=== PATIENT | female | born 1940 | race Caucasian/White ===

== ENCOUNTER → 2017-05-05 | Outpatient (CLI) | payer MEDICARE ==
--- NOTE | 2017-05-05 13:34 | PE ---
EXAMINATION TYPE: PET CT fusion skull to thigh DATE OF EXAM: 05/05/2017 COMPARISON: Chest x-ray January 17, 2016 HISTORY: Solitary pulmonary nodule TECHNIQUE: Following the intravenous administration of 11.27 mCi of F-18 FDG, whole body images are performed from the skull base to the midthigh. Images are reviewed on the computer in the coronal, a xial, and sagittal planes. Reconstructed rotating images are created on independent workstation and reviewed on the computer. A noncontrast CT is performed in conjunction with the PET scan. SCAN: Initial Scan FINDINGS: SKULL BASE AND NECK: No suspicious hypermetabolic uptake is seen in the neck. CHEST, MEDIASTINUM, AND HILAR REGION: There is irregular thick-walled cavitary lesion anterior superi or aspect right lower lobe, and has hypermetabolic solid component along the right lower lateral chano in, this solid component measures 9 x 6 mm axial image 92. Max SUV at this level is 5.9. Cavitary les ion in its entirety measures 1.9 x 1.6 cm axial image 91. Remainder of the thorax shows no suspicious hypermetabolic uptake. Linear scarring bilateral lung api ludmila is seen. ABDOMEN AND PELVIS: No suspicious hypermetabolic uptake is seen in the abdomen or pelvis. OSSEOUS STRUCTURES: No suspicious hypermetabolic uptake noted. OTHER CT: There is coronary artery calcification is seen which is noted marker for coronary artery di sease. There are scattered diverticula throughout the colon most prominent in the sigmoid colon. There are s cattered pelvic phleboliths. Uterus is surgically absent or markedly atrophic in appearance. There is multilevel facet arthropathy in the lumbar spine. There is multilevel spurring in the thorac olumbar spine. Underlying scoliosis is present. IMPRESSION: Nonspecific anterior superior lateral right lower lobe 1.9 cm cavitary lesion with eccent matt hypermetabolic wall or solid component differential includes infection/parenchymal abscess versus cavitary neoplasm. Clinical correlation advised. No additional areas of abnormal hypermetabolic upta ke in remainder of body. No additional suspicious nodules or thoracic adenopathy noted.
== END | disposition home or self-care (01) ==
LOC: RADPETMAIN 09:48
PROVIDERS: ATTEND Internal Medicine Critical Care Medicine
DX: J98.4 Other disorders of lung (principal)
CPT/HCPCS: 78815; A9552

== ENCOUNTER 2023-12-26 23:18 | Inpatient (IN) | payer MEDICARE ==
[2023-12-27 01:07] LABS: ALT 18 U/L (4-34); AST 31 U/L (14-36); African American GFR (CKD) >90 (>60 ml/min/1.73 sqM); Albumin 3.8 g/dL (3.5-5.0); Alkaline Phosphatase 121 U/L (38-126); Anion Gap 9 mmol/L; Blood Urea Nitrogen 28 mg/dL (7-17); Calcium 9.5 mg/dL (8.4-10.2); Carbon Dioxide 24 mmol/L (22-30); Chloride 107 mmol/L (98-107); Glucose 208 mg/dL (74-99); Non-African American GFR(CKD) >90 (>60 ml/min/1.73 sqM); Potassium 3.7 mmol/L (3.5-5.1); Sodium 140 mmol/L (137-145); Total Bilirubin 0.4 mg/dL (0.2-1.3); Total Protein 6.5 g/dL (6.3-8.2)
[2023-12-27 01:08] LABS: Basophils % (A) 0 %; Eosinophils % (A) 0 %; HCT 38.9 % (34.0-46.0); Lymphocytes # (A) 0.7 k/uL (1.0-4.8); Lymphocytes % (A) 9 %; MCH 32.1 pg (25.0-35.0); MCHC 33.5 g/dL (31.0-37.0); Mean Platelet Volume 7.8; Monocytes # (A) 0.4 k/uL (0-1.0); Monocytes % (A) 6 %; Neutrophils # (A) 6.4 k/uL (1.3-7.7); Neutrophils % (A) 83 %; Platelet Count 299 k/uL (150-450); RBC 4.05 m/uL (3.80-5.40); RDW 12.8 % (11.5-15.5); WBC 7.7 k/uL (3.8-10.6)
[2023-12-27 01:38] LABS: VBG PH 7.47 (7.31-7.41)
[2023-12-27] MEDS ORDERED: PNEUMONIA PROTOCOL UTILIZED 1 EACH MISC PO PRN (02:42)
[2023-12-27] MEDS: SODIUM CHLORIDE 0.9% 1,000 ML IV SCH (03:13)
[2023-12-27] MEDS ORDERED: ONDANSETRON 4 MG TAB PO PRN (09:03)
[2023-12-27] MEDS ORDERED: ACETAMINOPHEN TAB 325 MG TAB PO PRN (09:03)
[2023-12-27] MEDS ORDERED: LOPERAMIDE 2 MG CAP PO PRN (09:03)
[2023-12-27] MEDS ORDERED: ALBUTEROL NEBULIZED 2.5 MG/3 ML INHALATION PRN (09:03)
[2023-12-27] MEDS: MAGNESIUM HYDROXIDE 2,400 MG/30 ML CUP PO PRN (10:15)
--- NOTE | 2023-12-27 11:27 | XR ---
EXAMINATION TYPE: XR chest 1V DATE OF EXAM: 12/27/2023 9:54 AM COMPARISON: 12/26/2023 CLINICAL INDICATION: Female, 83 years old with history of sob; TECHNIQUE: XR chest 1V Frontal view of the chest. FINDINGS: Lungs/Pleura: There is no evidence of pleural effusion, focal consolidation, or pneumothorax. Pulmonary vascularity: Unremarkable. Heart/mediastinum: Cardiomediastinal silhouette is unremarkable. Musculoskeletal: No acute osseous pathology. IMPRESSION: 1. No acute cardiopulmonary disease process. 2. COPD changes. [facility], , 12/27/2023 11:25 AM
[2023-12-27] MEDS: atenoloL 25 MG TAB PO SCH (13:12)
--- NOTE | 2023-12-27 15:20 | P.HPIM ---
History of Present Illness History of present illness; 83-year-old female with a past medical history of COPD (on), GERD, hypertension, and OA presents with complaints of shortness of breath and tachypnea. Patient's daughter reports she noticed her mother, who stays at [facility] normally, was having increased work of breathing so asked one of the nurses at [facility] to put a pulse ox on her and found that her O2 saturation was in the low 80s. At this point the daughter was concerned and brought her mother to the emergency room. Of note, the daughter reports the patient was being treated for a potential pneumonia by the REFINER OPERATOR at [facility] with azithromycin, cefotetan, and prednisone 50 mg. Patient reports she currently is feeling much better after starting on BiPAP in the ER and eventually being downgraded onto 3 L oxygen nasal cannula. Patient admits to shortness of breath, tachypnea, and cough. Patient denies any other symptoms. Family history: Noncontributory Surgical history: Breast biopsy and cataract surgery Social history: Occasional alcohol use and former smoker. Initial lab work from the ER was significant for WBC 7.7, hemoglobin 13, MCV 96, neutrophils 6.4, plasma lactic acid 2.2--> 1.2, glucose 208. EKG done in the ER showed heart rate of 102 bpm, no ST segment elevation or depression seen, no T-wave inversions seen. Sinus tachycardia. ER CXR: No acute cardiopulmonary process, COPD changes. Patient admitted to internal medicine service REVIEW OF SYSTEMS: As stated above in HPI. The rest of the 14-point review of systems is negative. PHYSICAL EXAMINATION: GENERAL: The patient is alert and oriented x3, not in any acute distress. Well developed, well nourished. HEENT: Pupils are round and equally reacting to light. EOMI. No scleral icterus. No conjunctival pallor. Normocephalic, atraumatic. No pharyngeal erythema. No thyromegaly. CARDIOVASCULAR: S1 and S2 present. No murmurs, rubs, or gallops. PULMONARY: Chest is clear to auscultation b/l, no wheezing or crackles. ABDOMEN: Soft, nontender, nondistended, normoactive bowel sounds. No palpable organomegaly. MUSCULOSKELETAL: No joint swelling or deformity. EXTREMITIES: No cyanosis, clubbing, or pedal edema. NEUROLOGICAL: Gross neurological examination did not reveal any focal deficits. SKIN: No rashes. Assessment & Plan: Acute: #Shortness of breath and tachypnea Acute hypoxic respiratory failure Bacterial pneumonia Pending sputum, blood culture, and Legionella Procalcitonin 0.63, troponins less than 0.012 Ordered D-dimer which was found to be elevated 4.25 so ordered a stat chest CTA, pending results Pulmonology on consult, appreciate further recommendations Continue home breathing treatments Chronic: #GERD: Continue famotidine 20 mg p.o. daily #Hypertension: Continue home medications #OA F: NS at 100 cc/h E: None N: Regular diet A: Normally is very sedentary at [facility], ambulates with assistance DVT ppx: Lovenox 40 SQ daily GI ppx: Famotidine 20 mg p.o. daily Dispo: Pending clinical course Marc Bennett MD PGY-1 FM Dictation was produced using [employer] dictation software. please excuse any grammatical, word or spelling errors. Attestation I have seen and examined this patient with my resident , discussed the same with the resident/MISAEL, and agree with the dictator's assessment and plan as written Dr. Nehemiah horn Past Medical History Past Medical History: Cancer, COPD, GERD/Reflux, Hypertension, Osteoarthritis (OA) Additional Past Medical History / Comment(s): hypothyroidism, rhematic fever as child, heart murmur, dementia, frequent falls History of Any Multi-Drug Resistant Organisms: None Reported Additional Past Surgical History / Comment(s): breast biopsy, cataract sx. Past Psychological History: Anxiety, Depression Smoking Status: Former smoker Past Alcohol Use History: Occasional Past Drug Use History: None Reported Medications and Allergies Home Medications Medication Instructions Recorded Confirmed Type Acetaminophen Tab [Tylenol] 650 mg PO Q6H PRN MDD 3 GRAMS 12/27/23 12/27/23 History Albuterol Sulfate [Albuterol 2 puff PO RT-Q6H PRN 12/27/23 12/27/23 History Sulfate Hfa] Aspirin EC [Ecotrin Low Dose] 81 mg PO DAILY 12/27/23 12/27/23 History Azithromycin [Zithromax Z Pack] See Taper PO DIRECTED 12/27/23 12/27/23 History Famotidine [Pepcid] 20 mg PO DAILY 12/27/23 12/27/23 History Ipratropium [place] [Atrovent Hfa] 2 puff INHALATION RT-QID 12/27/23 12/27/23 History Loperamide [Imodium] 2 mg PO QID PRN 12/27/23 12/27/23 History Magnesium Hydroxide [Milk of 30 mg PO DAILY PRN 12/27/23 12/27/23 History Magnesia] Multivitamins, Thera [Multivitamin 1 tab PO DAILY 12/27/23 12/27/23 History (formulary)] Ondansetron [Zofran] 4 mg PO Q6H PRN 12/27/23 12/27/23 History Sertraline [Zoloft] 50 mg PO DAILY 12/27/23 12/27/23 History Umeclidinium Brm/Vilanterol Tr 1 puff INHALATION RT-DAILY 12/27/23 12/27/23 History [Anoro Ellipta 62.5-25 Mcg INH] atenoloL [Tenormin] 25 mg PO DAILY 12/27/23 12/27/23 History cefUROXime axetiL [Ceftin] 500 mg PO Q12H 12/27/23 12/27/23 History predniSONE 50 mg PO DAILY 12/27/23 12/27/23 History Allergies Allergy/AdvReac Type Severity Reaction Status Date / Time animal dander Allergy Unknown Verified 12/27/23 08:16 atorvastatin [From Lipitor] Allergy Unknown Verified 12/27/23 08:16 latex Allergy Unknown Verified 12/27/23 08:16 milk Allergy Unknown Verified 12/27/23 08:16 Physical Exam Vitals: Vital Signs Temp Pulse Resp BP Pulse Ox FiO2 12/27/23 07:17 77 20 108/51 98 12/27/23 06:11 72 16 124/54 94 L 12/27/23 05:24 73 22 123/54 95 12/27/23 04:24 79 16 123/72 95 12/27/23 02:35 87 16 126/57 94 L 12/27/23 01:08 93 16 124/61 95 12/27/23 01:03 28 H 12/27/23 00:05 100 16 121/62 96 12/26/23 23:34 35 12/26/23 23:20 98.7 F 103 H 33 H 129/66 94 L Intake and Output 12/26/23 12/27/23 12/27/23 22:59 06:59 14:59 Other: Weight 60.6 kg Results CBC & Chem 7: 12/27/23 00:25 12/27/23 00:25 Labs: Abnormal Lab Results - Last 24 Hours (Table) 12/27/23 12/27/23 12/27/23 Range/Units 00:25 00:25 00:25 Lymphocytes # 0.7 L (1.0-4.8) k/uL VBG pH (7.31-7.41) BUN 28 H (7-17) mg/dL Creatinine 0.47 L (0.52-1.04) mg/dL Glucose 208 H (74-99) mg/dL Plasma Lactic Acid Mak 2.2 H* (0.7-2.0) mmol/L 12/27/23 Range/Units 01:09 Lymphocytes # (1.0-4.8) k/uL VBG pH 7.47 H (7.31-7.41) BUN (7-17) mg/dL Creatinine (0.52-1.04) mg/dL Glucose (74-99) mg/dL Plasma Lactic Acid Mak (0.7-2.0) mmol/L
--- NOTE | 2023-12-27 15:22 | P.GSCN ---
History of Present Illness Consult date: 12/27/23 History of present illness: CHIEF COMPLAINT: Pneumonia HISTORY OF PRESENT ILLNESS: This is a 83-year-old female who was a transfer from [facility]. She initially presented there with shortness of breath cough and diagnosed with pneumonia. Patient does have a history of COPD and lung cancer status post radiation treatment. Patient also was having abdominal pain. A CT scan abdomen pelvis was completed showing large distention of the sigmoid colon with fecal debris and fluid retention. Patient did have a large bowel movement in the ER and reports some improvement in her abdominal pain. She did have nausea earlier. No vomiting. Denies history of constipation. And denies any prior colonoscopy. Surgical service consulted in regards to abdominal pain. PAST MEDICAL HISTORY: See below PAST SURGICAL HISTORY: See below MEDICATIONS: See below ALLERGIES: See below SOCIAL HISTORY: No illicit drug use. REVIEW OF SYSTEMS: CONSTITUTIONAL: Denies fever or chills. HEENT: Denies blurred vision, vision changes, or eye pain. Denies hemoptysis CARDIOVASCULAR: Denies chest pain or pressure. RESPIRATORY: No shortness of breath. GASTROINTESTINAL: See HPI for pertinent findings HEMATOLOGIC: Denies bleeding disorders. GENITOURINARY: Denies any blood in urine or increased urinary frequency. SKIN: Denies pruitis. Denies rash. PHYSICAL EXAM: VITAL SIGNS: Reviewed GENERAL: Well-developed in no acute distress. HEENT: No sclera icterus. Extraocular movements grossly intact. Moist buccal mucosa. Head is atraumatic, normocephalic. No nasal drainage. ABDOMEN: Soft. Distended. Nontender with palpation. Tympanic. No guarding. NEUROLOGIC: Alert and oriented. Cranial nerves II through XII grossly intact. LABORATORY DATA: WBC is 7.7 Hgb is 13 platelets 299 D-dimer 4.25 sodium 140 potassium 3.7 creatinine 0.47 Lactic acid 2.2 down to 1.2 IMAGING: CT scan abdomen pelvis reports large distention of the sigmoid colon with fecal debris and fluid in the rectum. Dilated colon is not otherwise apparent. ASSESSMENT: 1. Abdominal distention. CT scan reporting large distention of the sigmoid colon with fecal debris and fluid in the rectum 2. Constipation 3. Pneumonia PLAN: -Agree with milk of magnesia -Recommend full liquid diet -Continue to monitor -Discontinue Imodium at this time Thank you for this consultation Physician Cutting Tool Sharpener note has been reviewed by physician. Signing provider agrees with the documented findings, assessment, and plan of care. Please see additional documentation below CHIEF COMPLAINT: Abdominal distention HISTORY OF PRESENT ILLNESS: The patient is a 83-year-old female who was admitted secondary to dyspnea and bacterial pneumonia. During assessment, patient found abdominal distention has general surgery consultation. No reports of blood in stools. Patient had initial abdominal pain. Patient noted to have large bowel movement since admission. No prior colonoscopy noted. Patient incidentally being recently treated for lung cancer status post radiation. PAST MEDICAL HISTORY: See list and reviewed PAST SURGICAL HISTORY: See list and reviewed MEDICATIONS: See list and reviewed ALLERGIES: See list and reviewed SOCIAL HISTORY: See list and reviewed FAMILY HISTORY: See list and reviewed REVIEW OF ORGAN SYSTEMS: CONSTITUTIONAL: No fevers or chills. No recent weight loss. EYES: Denies any trouble with vision. No glasses. HEENT: No difficulties with hearing. No nosebleeds. No difficulty swallowing. RESPIRATORY: Current pneumonia status post radiation for lung cancer. Has chronic obstructive pulmonary disease. CARDIOVASCULAR: Has hypertensive heart disease. GASTROINTESTINAL: Has gastroesophageal reflux disease. GENITOURINARY: Denies any blood in urine or increased urinary frequency. NEUROLOGICAL: Denies any numbness or tingling along the distal extremities. No seizure disorders or headaches. MUSCULOSKELETAL: Has back pain, stiffness or joint arthritis. SKIN: No current skin cancer. No rash. PSYCHIATRIC: Has depressive disorder. Has dementia. ENDOCRINE: On chronic steroids. Has hypothyroidism. HEME/LYMPHATIC: Denies any lumps and bumps around the neck. No recent deep venous thrombosis. ALLERGY/IMMUNOLOGY: No immunoglobulin therapy. No immune deficiencies. BREAST: History of breast biopsies. PHYSICAL EXAM: VITALS: Reviewed CONSTITUTIONAL: Well developed and in no acute distress. EYES: Conjuctivae without sclera icterus. Extraocular movements grossly intact. HEAD, EARS, NOSE, THROAT: Moist buccal mucosa. Head is atraumatic, normocephalic. Hears conversational speech. No nasal drainage. NECK: Supple. No JV distention. No thyroidomegaly. RESPIRATORY: Non-labored respirations and equal bilateral excursions. No gross wheezes. CARDIOVASCULAR: Palpable 2+ radial pulses. ABDOMEN: Distended. Nontender. LYMPH: No neck lymphadenopathy. MUSCULOSKELETAL: No clubbing cyanosis or edema SKIN: Warm and well perfused with good skin turgor. NEUROLOGIC: Cranial nerves II through XII grossly intact. No focal or lateraliz ing signs. PSYCH: Alert to self. CLINCAL LABS: Reviewed. WBC on admission normal, 7.7. LFTs within normal limits. COVID-negative. IMAGING: Independently reviewed. CT abdomen pelvis from 1030 reviewed demonstrate moderate distention of what appears to be sigmoid colon questionable for large bowel obstruction. No identified masses. Moderate stool retention noted. This is my independent interpretation. ASSESSMENT: 1. Abdominal pain with abdominal distention 2. Constipation 3. Lung cancer status post radiation 4. Hypothyroidism PLAN: 1. Recommend discontinue laxatives the patient has had a bowel movement. 2. Will benefit from additional imaging to follow-up gaseous distention of colon 3. May have liquid diet in interim. ADVANCE DIRECTIVE: CODE STATUS in chart. Thank you for this kind consultation. Past Medical History Past Medical History: Cancer, COPD, GERD/Reflux, Hypertension, Osteoarthritis (OA) Additional Past Medical History / Comment(s): hypothyroidism, rhematic fever as child, heart murmur, dementia, frequent falls History of Any Multi-Drug Resistant Organisms: None Reported Additional Past Surgical History / Comment(s): breast biopsy, cataract sx. Past Psychological History: Anxiety, Depression Smoking Status: Former smoker Past Alcohol Use History: Occasional Past Drug Use History: None Reported Medications and Allergies Home Medications Medication Instructions Recorded Confirmed Type Acetaminophen Tab [Tylenol] 650 mg PO Q6H PRN MDD 3 GRAMS 12/27/23 12/27/23 History Albuterol Sulfate [Albuterol 2 puff PO RT-Q6H PRN 12/27/23 12/27/23 History Sulfate Hfa] Aspirin EC [Ecotrin Low Dose] 81 mg PO DAILY 12/27/23 12/27/23 History Azithromycin [Zithromax Z Pack] See Taper PO DIRECTED 12/27/23 12/27/23 History Famotidine [Pepcid] 20 mg PO DAILY 12/27/23 12/27/23 History Ipratropium [place] [Atrovent Hfa] 2 puff INHALATION RT-QID 12/27/23 12/27/23 History Loperamide [Imodium] 2 mg PO QID PRN 12/27/23 12/27/23 History Magnesium Hydroxide [Milk of 30 mg PO DAILY PRN 12/27/23 12/27/23 History Magnesia] Multivitamins, Thera [Multivitamin 1 tab PO DAILY 12/27/23 12/27/23 History (formulary)] Ondansetron [Zofran] 4 mg PO Q6H PRN 12/27/23 12/27/23 History Sertraline [Zoloft] 50 mg PO DAILY 12/27/23 12/27/23 History Umeclidinium Brm/Vilanterol Tr 1 puff INHALATION RT-DAILY 12/27/23 12/27/23 History [Anoro Ellipta 62.5-25 Mcg INH] atenoloL [Tenormin] 25 mg PO DAILY 12/27/23 12/27/23 History cefUROXime axetiL [Ceftin] 500 mg PO Q12H 12/27/23 12/27/23 History predniSONE 50 mg PO DAILY 12/27/23 12/27/23 History Allergies Allergy/AdvReac Type Severity Reaction Status Date / Time animal dander Allergy Unknown Verified 12/27/23 08:16 atorvastatin [From Lipitor] Allergy Unknown Verified 12/27/23 08:16 latex Allergy Unknown Verified 12/27/23 08:16 milk Allergy Unknown Verified 12/27/23 08:16 Surgical - Exam Vital Signs Temp Pulse Resp BP Pulse Ox 98.7 F 103 H 33 H 129/66 94 L 12/26/23 23:20 12/26/23 23:20 12/26/23 23:20 12/26/23 23:20 12/26/23 23:20 Results - Labs 12/29/23 03:23 12/29/23 03:23 Abnormal Lab Results - Last 24 Hours (Table) 12/27/23 12/27/23 12/27/23 Range/Units 00:25 00:25 00:25 Lymphocytes # 0.7 L (1.0-4.8) k/uL D-Dimer (<0.60) mg/L FEU VBG pH (7.31-7.41) BUN 28 H (7-17) mg/dL Creatinine 0.47 L (0.52-1.04) mg/dL Glucose 208 H (74-99) mg/dL Plasma Lactic Acid Mak 2.2 H* (0.7-2.0) mmol/L C-Reactive Protein 9.40 H (0.00-0.80) mg/dL Procalcitonin (0.02-0.50) ng/mL 12/27/23 12/27/23 12/27/23 Range/Units 00:25 01:09 11:53 Lymphocytes # (1.0-4.8) k/uL D-Dimer 4.25 H (<0.60) mg/L FEU VBG pH 7.47 H (7.31-7.41) BUN (7-17) mg/dL Creatinine (0.52-1.04) mg/dL Glucose (74-99) mg/dL Plasma Lactic Acid Mak (0.7-2.0) mmol/L C-Reactive Protein (0.00-0.80) mg/dL Procalcitonin 0.63 H (0.02-0.50) ng/mL Diabetes panel 12/27/23 Range/Units 00:25 Sodium 140 (137-145) mmol/L Potassium 3.7 (3.5-5.1) mmol/L Chloride 107 (98-107) mmol/L Carbon Dioxide 24 (22-30) mmol/L BUN 28 H (7-17) mg/dL Creatinine 0.47 L (0.52-1.04) mg/dL Glucose 208 H (74-99) mg/dL Calcium 9.5 (8.4-10.2) mg/dL AST 31 (14-36) U/L ALT 18 (4-34) U/L Alkaline Phosphatase 121 (38-126) U/L Total Protein 6.5 (6.3-8.2) g/dL Albumin 3.8 (3.5-5.0) g/dL Calcium panel 12/27/23 Range/Units 00:25 Calcium 9.5 (8.4-10.2) mg/dL Albumin 3.8 (3.5-5.0) g/dL Pituitary panel 12/27/23 Range/Units 00:25 Sodium 140 (137-145) mmol/L Potassium 3.7 (3.5-5.1) mmol/L Chloride 107 (98-107) mmol/L Carbon Dioxide 24 (22-30) mmol/L BUN 28 H (7-17) mg/dL Creatinine 0.47 L (0.52-1.04) mg/dL Glucose 208 H (74-99) mg/dL Calcium 9.5 (8.4-10.2) mg/dL Adrenal panel 12/27/23 Range/Units 00:25 Sodium 140 (137-145) mmol/L Potassium 3.7 (3.5-5.1) mmol/L Chloride 107 (98-107) mmol/L Carbon Dioxide 24 (22-30) mmol/L BUN 28 H (7-17) mg/dL Creatinine 0.47 L (0.52-1.04) mg/dL Glucose 208 H (74-99) mg/dL Calcium 9.5 (8.4-10.2) mg/dL Total Bilirubin 0.4 (0.2-1.3) mg/dL AST 31 (14-36) U/L ALT 18 (4-34) U/L Alkaline Phosphatase 121 (38-126) U/L Total Protein 6.5 (6.3-8.2) g/dL Albumin 3.8 (3.5-5.0) g/dL
--- NOTE | 2023-12-27 15:44 | P.CNPUL ---
History of Present Illness Consult date: 12/27/23 Requesting physician: Tim Ahuja Chief complaint: Weakness. History of present illness: Pulmonary consult dated December 27, 2023. 83-year-old female with a history of multiple medical problems, apparently presents to [facility], and then transferred here, from a correction in [place], because of shortness of breath, and weakness. The patient is a very poor historian, but is seen in the emergency department, room 15. She apparently was noted to have increasing shortness of breath, and increased work of breathing at the correction, and her saturations, were apparently in the low 80s. The patient was apparently receiving antibiotics at the correction, for possible pneumonia. The patient is seen in room 15, and is currently on 3 L of oxygen. She was started on a Rocephin and azithromycin. She was getting saline at 100 cc an hour. Again a very poor historian, is very slow to speak, and, not much history is obtained. Medical history apparently includes COPD, acid reflux disease, hypertension, hypothyroidism, rheumatic fever, osteoarthritis, and dementia. Current laboratory data includes a normal CBC. D-dimer was 4.25. Venous blood gases show pCO2 of 38, and a pH of 7.47. Sodium 140, potassium 3.7, chlorides 107, CO2 24, anion gap 9, BUN 28, and creatinine 0.47. The patient's procalcitonin level was 0.63 which is elevated. C-reactive protein is elevated at 9.4. N-terminal proBNP 1220. Chest x-ray shows changes of COPD. No acute infiltrates. Review of Systems REVIEW OF SYSTEMS: CONSTITUTIONAL: [Negative.] NEUROLOGIC: [ Negative.] HEENT: [ Negative.] CARDIAC: [Negative.] PULMONARY: Shortness of breath, and low saturations. GI: [Negative.] : [Negative.] RHEUMATOLOGIC: [ Negative.] IMMUNOLOGIC: [ Negative.] ENDOCRINE: [Negative. ] DERMATOLOGIC: [Negative.] Past Medical History Past Medical History: Cancer, COPD, GERD/Reflux, Hypertension, Osteoarthritis (OA) Additional Past Medical History / Comment(s): hypothyroidism, rhematic fever as child, heart murmur, dementia, frequent falls History of Any Multi-Drug Resistant Organisms: None Reported Additional Past Surgical History / Comment(s): breast biopsy, cataract sx. Past Psychological History: Anxiety, Depression Smoking Status: Former smoker Past Alcohol Use History: Occasional Past Drug Use History: None Reported Medications and Allergies Home Medications Medication Instructions Recorded Confirmed Type Acetaminophen Tab [Tylenol] 650 mg PO Q6H PRN MDD 3 GRAMS 12/27/23 12/27/23 History Albuterol Sulfate [Albuterol 2 puff PO RT-Q6H PRN 12/27/23 12/27/23 History Sulfate Hfa] Aspirin EC [Ecotrin Low Dose] 81 mg PO DAILY 12/27/23 12/27/23 History Azithromycin [Zithromax Z Pack] See Taper PO DIRECTED 12/27/23 12/27/23 History Famotidine [Pepcid] 20 mg PO DAILY 12/27/23 12/27/23 History Ipratropium Thebes [Atrovent Hfa] 2 puff INHALATION RT-QID 12/27/23 12/27/23 History Loperamide [Imodium] 2 mg PO QID PRN 12/27/23 12/27/23 History Magnesium Hydroxide [Milk of 30 mg PO DAILY PRN 12/27/23 12/27/23 History Magnesia] Multivitamins, Thera [Multivitamin 1 tab PO DAILY 12/27/23 12/27/23 History (formulary)] Ondansetron [Zofran] 4 mg PO Q6H PRN 12/27/23 12/27/23 History Sertraline [Zoloft] 50 mg PO DAILY 12/27/23 12/27/23 History Umeclidinium Brm/Vilanterol Tr 1 puff INHALATION RT-DAILY 12/27/23 12/27/23 History [Anoro Ellipta 62.5-25 Mcg INH] atenoloL [Tenormin] 25 mg PO DAILY 12/27/23 12/27/23 History cefUROXime axetiL [Ceftin] 500 mg PO Q12H 12/27/23 12/27/23 History predniSONE 50 mg PO DAILY 12/27/23 12/27/23 History Allergies Allergy/AdvReac Type Severity Reaction Status Date / Time animal dander Allergy Unknown Verified 12/27/23 08:16 atorvastatin [From Lipitor] Allergy Unknown Verified 12/27/23 08:16 latex Allergy Unknown Verified 12/27/23 08:16 milk Allergy Unknown Verified 12/27/23 08:16 Physical Exam Osteopathic Statement: *. No significant issues noted on an osteopathic structural exam other than those noted in the History and Physical/Consult. Vitals: Vital Signs Temp Pulse Resp BP Pulse Ox FiO2 12/27/23 13:02 76 18 140/62 96 12/27/23 12:11 76 18 134/63 95 12/27/23 08:54 71 18 130/53 96 12/27/23 07:17 77 20 108/51 98 12/27/23 06:11 72 16 124/54 94 L 12/27/23 05:24 73 22 123/54 95 12/27/23 04:24 79 16 123/72 95 12/27/23 02:35 87 16 126/57 94 L 12/27/23 01:08 93 16 124/61 95 12/27/23 01:03 28 H 12/27/23 00:05 100 16 121/62 96 12/26/23 23:34 35 12/26/23 23:20 98.7 F 103 H 33 H 129/66 94 L Intake and Output 12/27/23 12/27/23 12/27/23 06:59 14:59 22:59 Other: Weight 60.6 kg No acute distress, oriented 3. Audible wheezing, or use of accessory muscles. Patient currently on 3 L by nasal cannula. HEENT examination is grossly unremarkable. Mucous membranes are moist. No oral lesions. Neck supple. Full range of motion. No adenopathy thyromegaly or neck vein distention. Cardiovascular examination reveals regular rhythm rate. S1-S2 normal. No S3 or S4. No discernible murmur noted. Heart sounds are distant. Lungs reveal bilateral rhonchi. No wheezes or crackles. Breath sounds equal. Abdomen soft bowel sounds are heard. No masses or tenderness. Extremities are intact. No cyanosis clubbing or edema. Skin is without rash or lesion. Neurologic examination is brief but nonfocal. Results - Laboratory Findings CBC and BMP: 12/27/23 00:25 12/27/23 00:25 PT/INR, D-dimer D-Dimer 4.25 mg/L FEU (<0.60) H 12/27/23 11:53 Abnormal lab findings: Abnormal Labs 12/27/23 12/27/23 12/27/23 00:25 00:25 00:25 Lymphocytes # 0.7 L D-Dimer VBG pH BUN 28 H Creatinine 0.47 L Glucose 208 H Plasma Lactic Acid Mak 2.2 H* C-Reactive Protein 9.40 H Procalcitonin 12/27/23 12/27/23 12/27/23 00:25 01:09 11:53 Lymphocytes # D-Dimer 4.25 H VBG pH 7.47 H BUN Creatinine Glucose Plasma Lactic Acid Mak C-Reactive Protein Procalcitonin 0.63 H - Diagnostic Findings Chest x-ray: image reviewed Assessment and Plan Assessment: Acute hypoxemic respiratory failure secondary to COPD exacerbation. History of hypertension. History of rheumatic fever as a child. History of dementia. History of osteoarthritis. History of gastroesophageal reflux disease. History of anxiety/depression. Prior history of tobacco use. Plan: Plan dated December 27, 2023. The patient was placed on Rocephin and azithromycin. Chest x-ray did not show an acute infiltrate. Procalcitonin level, was elevated though. The patient was also placed on formoterol, mixed with budesonide, twice a day. The patient is on updrafts, with albuterol sulfate and ipratropium bromide, 4 times daily and as needed. The patient will be given a smaller dose of Solu-Medrol, 40 mg every 6 hours. Labs, x-rays, and medications are reviewed. Prognosis is guarded. Chest x-ray did not show an acute infiltrate. There were changes of COPD. Time with Patient: Greater than 30
[2023-12-27] MEDS: IPRATROPIUM-ALBUTEROL 3 ML NEB INHALATION SCH (16:01)
--- NOTE | 2023-12-27 16:11 | CT ---
CTA CHEST EXAMINATION TYPE: CT chest angio for PE DATE OF EXAM: 12/27/2023 INDICATION: Dyspnea and elevated d-dimer CT DLP: 273.1 mGycm, Automated exposure control for dose reduction was used. CONTRAST: Patient injected with 65ml mL of Isovue 370. COMPARISON: 12/26/2023 CT Chest [facility] TECHNIQUE: CT of the chest is performed on a spiral scan at 2 mm thick sections. Study is performed with intravenous contrast timed for evaluation for pulmonary embolism. This will limit additional po rtions of the evaluation. 3-D MIP images reconstructed by the technologist are reviewed on the compu ter in the coronal and sagittal planes. FINDINGS: No persistent filling defects are evident to suggest an acute pulmonary embolism. No mediastinal or hilar adenopathy enlarged by CT criteria is evident. The ascending aorta diameter at the level of the main pulmonary artery is 2.9 cm. The main pulmonary artery diameter at the bifurcation is 2.6 cm. There is thickening along the major fissure on the right. There are scattered nonspecific increased l lela markings bilaterally. Consider atypical pneumonia there is slight increase from prior exam. Limited CT sections were through the upper abdomen. Upper abdomen appears unremarkable. IMPRESSION: 1. Similar mildly increased infiltrates diffusely bilateral lung townsend. Correlate for atypical pneum onia. 2. No acute pulmonary embolism. [facility], Workstation: [facility], 12/27/2023 4:08 PM
[2023-12-27] MEDS: IPRATROPIUM-ALBUTEROL 3 ML NEB INHALATION PRN (18:24)
[2023-12-27] MEDS: FORMOTEROL FUMARATE 20 MCG/2 ML NEBU INHALATION SCH (18:25)
[2023-12-27] MEDS: BUDESONIDE 1 MG/2 ML NEBU INHALATION SCH (18:25)
[2023-12-27] MEDS: methylPREDNISolone SOD SUCCI 40 MG/ML 1 ML VIAL IV SCH (18:46)
[2023-12-27] MEDS: IPRATROPIUM 0.5 MG/2.5 ML NEBU INHALATION SCH (19:25)
[2023-12-27] MEDS ORDERED: BUDESONIDE 0.5 MG/2 ML NEBU INHALATION SCH (20:00)
[2023-12-27 22:34] LABS: Influenza A Not Detected (Not Detectd); Influenza B Not Detected (Not Detectd); RSV Not Detected (Not Detectd)
[2023-12-28] MEDS: ASPIRIN 81 MG PO SCH (09:01)
[2023-12-28] MEDS: FAMOTIDINE 20 MG TAB PO SCH (09:01)
[2023-12-28] MEDS: ENOXAPARIN 40 MG/0.4 ML SYRINGE SQ SCH (09:01)
[2023-12-28] MEDS: MULTIVITAMINS, THERA 1 EACH TAB PO SCH (09:02)
[2023-12-28] MEDS: SERTRALINE 50 MG TAB PO SCH (09:02)
[2023-12-28] MEDS: AZITHROMYCIN 500 MG TAB PO SCH (09:02)
[2023-12-28 10:25] LABS: HCT 35.9 % (37.2-46.3); HGB 11.7 g/dL (12.0-15.0); MCH 31.3 pg (27.0-32.0); MCHC 32.6 g/dL (32.0-37.0); Mean Platelet Volume 9.6 FL (9.5-12.2); NRBC Per 100 WBC 0 X 10*3/uL (0.00-0.01); Platelet Count 261 X 10*3/uL (140-440); RBC 3.74 X 10*6/uL (4.10-5.20); RDW 12.6 % (11.5-14.5); WBC 6.79 X 10*3/uL (4.50-10.00)
[2023-12-28 10:36] LABS: Blood Urea Nitrogen 21.6 mg/dL (9.0-27.0); Glucose 119 mg/dL (70-110)
[2023-12-28 10:37] LABS: Calcium 8.6 mg/dL (8.7-10.3); Carbon Dioxide 25.5 mmol/L (21.6-31.8); Chloride 108 mmol/L (96-109); Potassium 3.9 mmol/L (3.5-5.5); Sodium 146 mmol/L (135-145)
[2023-12-28 13:33] LABS: Basophils # (M) 0 X 10*3/uL (0.00-0.10); Eosinophils # (M) 0.14 X 10*3/uL (0.04-0.35); Lymphocytes # (M) 1.49 X 10*3/uL (0.90-5.00); Metamyelocytes % 3 % (0-0); Monocytes # (M) 0.07 X 10*3/uL (0.20-1.00); Neutrophils # (M) 4.89 X 10*3/uL (1.80-7.70); Neutrophils % (M) 72 %
--- NOTE | 2023-12-28 13:50 | XR ---
EXAMINATION TYPE: XR abdomen 2V DATE OF EXAM: 12/28/2023 1:45 PM COMPARISON: 12/26/2023 CLINICAL INDICATION: Female, 83 years old with history of follow up constipation; [facility] TECHNIQUE: Two views of the abdomen were obtained. FINDINGS/IMPRESSION: Gaseous dilation of bowel projecting over the pelvis. Given patient positioning on prior CT there is recommended that the patient possibly lays prone to shift the nondependent gas in the abdomen towards the rectum. Findings are to CT 12/26/2023 given differences in technique. [facility], , 12/28/2023 1:48 PM
--- NOTE | 2023-12-28 14:02 | P.PN ---
Subjective Progress Note Date: 12/28/23 83-year-old female with a history of multiple medical problems, apparently presents to [facility], and then transferred here, from a prison in [place], because of shortness of breath, and weakness. The patient is a very poor historian, but is seen in the emergency department, room 15. She apparently was noted to have increasing shortness of breath, and increased work of breathing at the prison, and her saturations, were apparently in the low 80s. The patient was apparently receiving antibiotics at the prison, for possible pneumonia. The patient is seen in room 15, and is currently on 3 L of oxygen. She was started on a Rocephin and azithromycin. She was getting saline at 100 cc an hour. Again a very poor historian, is very slow to speak, and, not much history is obtained. Medical history apparently includes COPD, acid reflux disease, hypertension, hypothyroidism, rheumatic fever, osteoarthritis, and dementia. Current laboratory data includes a normal CBC. D-dimer was 4.25. Venous blood gases show pCO2 of 38, and a pH of 7.47. Sodium 140, potassium 3.7, chlorides 107, CO2 24, anion gap 9, BUN 28, and creatinine 0.47. The patient's procalcitonin level was 0.63 which is elevated. C-reactive protein is elevated at 9.4. N-terminal proBNP 1220. Chest x-ray shows changes of COPD. No acute infiltrates. The patient is seen today December 28, 2023 in follow-up on the regular medical floor. She is currently awake and alert in no acute distress. She is maintaining O2 saturations in the 90s on 2 L/min per nasal cannula. She is afebrile. Hemodynamically stable. CT angiogram of the chest reveals similarly mild infiltrates bilateral lung townsend possible atypical pneumonia. No evidence of pulmonary embolism. Blood culture reveals no growth to date. White count 6.7. Hemoglobin 11.7. Platelets 261. Sodium 146. Potassium 3.9. Bicarb 25. BUN 22. Creatinine 0.5. C. difficile screen negative. Procalcitonin was 0.63. She is continued on ceftriaxone. Remains on DuoNeb inhalations, Pulmicort and Perforomist inhalations, Solu-Medrol. Lovenox for DVT prophylaxis. Objective - Vital Signs Vital signs: Vital Signs Temp 98.4 F 12/28/23 13:35 Pulse 104 H 12/28/23 13:35 Resp 19 12/28/23 13:35 BP 116/61 12/28/23 13:35 Pulse Ox 94 L 12/28/23 13:35 FiO2 35 12/26/23 23:34 Intake & Output 12/27/23 12/28/23 12/28/23 18:59 06:59 18:59 Intake Total 1200 Output Total 3 Balance 1197 Weight 60.6 kg 68 kg Intake: Intake, IV Titration 1200 Amount Sodium Chloride 0.9% 1, 1200 000 ml @ 100 mls/hr IV . Q10H [facility] Rx#:[id number] Output: Stool 3 Other: Voiding Method Bedpan Bedpan Diaper Diaper # Voids 3 - Exam GENERAL EXAM: Alert, 83-year-old female, on 2 L nasal cannula, fairly comfortable in no apparent distress. HEAD: Normocephalic. EYES: Normal reaction of pupils, equal size. NOSE: Clear with pink turbinates. THROAT: No erythema or exudates. NECK: No masses, no JVD. CHEST: No chest wall deformity. LUNGS: Equal air entry with bilateral scattered rhonchi. CVS: S1 and S2 normal with no audible murmur, regular rhythm. ABDOMEN: No hepatosplenomegaly, normal bowel sounds, no guarding or rigidity. SPINE: No scoliosis or deformity SKIN: No rashes CENTRAL NERVOUS SYSTEM: No focal deficits, tone is normal in all 4 extremities. EXTREMITIES: There is no peripheral edema. No clubbing, no cyanosis. Peripheral pulses are intact. - Labs CBC & Chem 7: 12/28/23 06:26 12/28/23 06:26 Labs: Abnormal Lab Results - Last 24 Hours (Table) 12/28/23 12/28/23 Range/Units 06:26 06:26 RBC 3.74 L (4.10-5.20) X 10*6/uL Hgb 11.7 L (12.0-15.0) g/dL Hct 35.9 L (37.2-46.3) % Monocytes # (Manual) 0.07 L (0.20-1.00) X 10*3/uL Sodium 146 H (135-145) mmol/L Anion Gap 12.50 H (4.00-12.00) mmol/L Creatinine 0.5 L (0.6-1.5) mg/dL BUN/Creatinine Ratio 43.20 H (12.00-20.00) Ratio Glucose 119 H (70-110) mg/dL Calcium 8.6 L (8.7-10.3) mg/dL Microbiology - Last 24 Hours (Table) 12/27/23 01:08 Blood Culture - Preliminary Blood Assessment and Plan Assessment: Acute hypoxemic respiratory failure secondary to COPD exacerbation Abdominal pain of unclear etiology, x-ray pending History of hypertension History of rheumatic fever as a child History of dementia History of osteoarthritis History of gastroesophageal reflux disease History of anxiety/depression Prior history of tobacco use Plan: The patient was seen and evaluated CT angiogram, labs and medications reviewed Continue bronchodilators, steroids Continue antibiotics Tolerating a full liquid diet Aspiration precautions Titrate the FiO2 as tolerated We will continue to follow I have personally seen and examined the patient, performed the documentation and the assessment and plan as written. Number of minutes spent on the visit: 10 Dictation was produced using [employer] dictation software. Please excuse any grammatical, word or spelling errors.
--- NOTE | 2023-12-28 15:02 | P.PN ---
Subjective Progress Note Date: 12/28/23 CHIEF COMPLAINT: Pneumonia HISTORY OF PRESENT ILLNESS: Patient sitting in bed comfortably. She reports h aving 2 bowel movements yesterday. She denies any nausea or vomiting. She reports no abdominal pain. She reports that she is feeling less distended. Afebrile. Abdominal x-ray reports gaseous dilation of bowel projecting over the pelvis. Afebrile. WBC 6.79 Hgb 11.7 platelets 261 sodium 146 potassium 3.9 creatinine 0.5 stool for C. difficile PHYSICAL EXAM: VITAL SIGNS: Reviewed GENERAL: Well-developed in no acute distress. HEENT: No sclera icterus. Extraocular movements grossly intact. Moist buccal mucosa. Head is atraumatic, normocephalic. Hears conversational speech. No nasal drai nage. NECK: Supple without lymphadenopathy. CHEST: Non-labored respirations and equal bilateral excursions. CARDIOVASCULAR: Palpable 2+ radial pulses. ABDOMEN: Soft. mildly distended, less than yesterday. Nontender. MUSCULOSKELETAL: No clubbing or cyanosis. NEUROLOGIC: No focal or lateralizing signs. Cranial nerves II through XII grossly intact. PSYCH: Appropriate affect. Alert and oriented to person, place and time. SKIN: Well perfused. Good skin turgor. ASSESSMENT: 1. Abdominal distention. CT scan reporting large distention of the sigmoid colon with fecal debris and fluid in the rectum 2. Constipation 3. Pneumonia PLAN: -Continue full liquid diet -Mylicon gas drops added for gaseous dilation of bowel -Encourage patient to increase activity level Physician Telemarketing Supervisor note has been reviewed by physician. Signing provider agrees with the documented findings, assessment, and plan of care. Please see additional documentation below CHIEF COMPLAINT: Abdominal distention HISTORY OF PRESENT ILLNESS: The patient is a 83-year-old female being followed for abdominal distention. She has had a bowel movement. She continues abdominal distention. She has been treated for pneumonia. ROS: No reports of nausea and vomiting. No new chest pain. PHYSICAL EXAM: VITAL SIGNS: Reviewed CONSTITUTIONAL: Well developed and in no acute distress. EYES: Conjuctivae without sclera icterus. Extraocular movements grossly intact. HEAD, EARS, NOSE, THROAT: Moist buccal mucosa. Head is atraumatic, normocephalic. Hears conversational speech. No nasal drainage. RESPIRATORY: Non-labored respirations and equal bilateral excursions. CARDIOVASCULAR: Palpable 2+ radial pulses. ABDOMEN: Distended. No peritonitis. MUSCULOSKELETAL: No gross deformity of the lower extremities noted. No clubbing. No cyanosis. SKIN: Good skin turgor. Well perfused. NEUROLOGIC: Cranial nerves II through XII grossly intact. No focal or lateralizing signs. PSYCH: Appropriate affect. Alert and oriented to person, place and time. CLINICAL LABS: Reviewed. No leukocytosis. Electrolytes within normal limits ASSESSMENT: 1. Abdominal distention with constipation 2. Pneumonia, bacterial 3. Lung cancer PLAN: 1. Simethicone gas shows for gaseous distention of the bowels 2. Continue full liquid diet. 3. Recommend physical therapy with occupational therapy 4. Recommend repeat imaging for objective follow-up of abdominal distention Objective - Vital Signs Vital signs: Vital Signs Temp 98.4 F 12/28/23 13:35 Pulse 104 H 12/28/23 13:35 Resp 19 12/28/23 13:35 BP 116/61 12/28/23 13:35 Pulse Ox 94 L 12/28/23 13:35 FiO2 35 12/26/23 23:34 Intake & Output 12/27/23 12/28/23 12/28/23 18:59 06:59 18:59 Intake Total 1200 Output Total 3 Balance 1197 Weight 60.6 kg 68 kg Intake: Intake, IV Titration 1200 Amount Sodium Chloride 0.9% 1, 1200 000 ml @ 100 mls/hr IV . Q10H [facility] Rx#:[id number] Output: Stool 3 Other: Voiding Method Bedpan Bedpan Diaper Diaper # Voids 3 - Labs CBC & Chem 7: 12/29/23 03:23 12/29/23 03:23 Labs: Abnormal Lab Results - Last 24 Hours (Table) 12/28/23 12/28/23 Range/Units 06:26 06:26 RBC 3.74 L (4.10-5.20) X 10*6/uL Hgb 11.7 L (12.0-15.0) g/dL Hct 35.9 L (37.2-46.3) % Monocytes # (Manual) 0.07 L (0.20-1.00) X 10*3/uL Sodium 146 H (135-145) mmol/L Anion Gap 12.50 H (4.00-12.00) mmol/L Creatinine 0.5 L (0.6-1.5) mg/dL BUN/Creatinine Ratio 43.20 H (12.00-20.00) Ratio Glucose 119 H (70-110) mg/dL Calcium 8.6 L (8.7-10.3) mg/dL Microbiology - Last 24 Hours (Table) 12/27/23 01:08 Blood Culture - Preliminary Blood
--- NOTE | 2023-12-28 15:26 | P.PN ---
Subjective Progress Note Date: 12/28/23 83-year-old female with a past medical history of COPD (on), GERD, hypertension, and OA presents with complaints of shortness of breath and tachypnea. Patient's daughter reports she noticed her mother, who stays at [facility] normally, was having increased work of breathing so asked one of the nurses at [facility] to put a pulse ox on her and found that her O2 saturation was in the low 80s. At this point the daughter was concerned and brought her mother to the emergency room. Of note, the daughter reports the patient was being treated for a potential pneumonia by the PRIMARY EDUCATION PROFESSOR at [facility] with azithromycin, cefotetan, and prednisone 50 mg. Patient reports she currently is feeling much better after starting on BiPAP in the ER and eventually being downgraded onto 3 L oxygen nasal cannula. Patient admits to shortness of breath, tachypnea, and cough. Patient denies any other symptoms. 12/27. Patient seen and examined. States she feels much better, shortness of breath is improved. Currently on 2 L of oxygen REVIEW OF SYSTEMS: CONSTITUTIONAL: No fever, no malaise,. CARDIOVASCULAR: No chest pain, no palpitations, no syncope. PULMONARY: No shortness of breath, no cough, GASTROINTESTINAL: No diarrhea, no nausea, no vomiting, no abdominal pain. NEUROLOGICAL: No headaches, no weakness, PHYSICAL EXAMINATION: GENERAL: The patient is alert and oriented x3, not in any acute distress. Ill looking HEENT: Pupils are round and equally reacting to light. EOMI. No scleral icterus. No conjunctival pallor. Normocephalic, atraumatic. No pharyngeal erythema. No thyromegaly. CARDIOVASCULAR: S1 and S2 present. No murmurs, rubs, or gallops. PULMONARY: Chest is clear to auscultation, no wheezing or crackles. ABDOMEN: Soft, nontender, nondistended, normoactive bowel sounds. No palpable organomegaly. MUSCULOSKELETAL: No joint swelling or deformity. EXTREMITIES: No cyanosis, clubbing, or pedal edema. NEUROLOGICAL: Gross neurological examination did not reveal any focal deficits. SKIN: No rashes. Assessment and plan #Shortness of breath and tachypnea Acute hypoxic respiratory failure Acute COPD exacerbation Bacterial pneumonia Monitor vital signs Monitor CBC Monitor CMP Continue breathing treatments continue IV Solu-Medrol Continue IV Rocephin and azithromycin Pulmonary following Constipation Abdominal distention, CT scan reporting large distention of the sigmoid colon with fecal diabetes and fluid in the rectum Aggressive bowel regimen Surgery following Chronic: #GERD: Continue famotidine 20 mg p.o. daily #Hypertension: Continue home medications Labs and medication were reviewed.. Continue same treatment. Continue with symptomatic treatment. Resume home medication. Monitor labs and vitals. DVT and GI prophylaxis. Further recommendations as per clinical course of the patient Dictation was produced using [employer] dictation software. please excuse any grammatical, word or spelling errors. Objective - Vital Signs Vital signs: Vital Signs Temp 98.4 F 12/28/23 13:35 Pulse 104 H 12/28/23 13:35 Resp 19 12/28/23 13:35 BP 116/61 12/28/23 13:35 Pulse Ox 94 L 12/28/23 13:35 FiO2 35 12/26/23 23:34 Intake & Output 12/27/23 12/28/23 12/28/23 18:59 06:59 18:59 Intake Total 1200 Output Total 3 Balance 1197 Weight 60.6 kg 68 kg Intake: Intake, IV Titration 1200 Amount Sodium Chloride 0.9% 1, 1200 000 ml @ 100 mls/hr IV . Q10H [facility] Rx#:[id number] Output: Stool 3 Other: Voiding Method Bedpan Bedpan Diaper Diaper # Voids 3 - Labs CBC & Chem 7: 12/28/23 06:26 12/28/23 06:26 Labs: Abnormal Lab Results - Last 24 Hours (Table) 12/28/23 12/28/23 Range/Units 06:26 06:26 RBC 3.74 L (4.10-5.20) X 10*6/uL Hgb 11.7 L (12.0-15.0) g/dL Hct 35.9 L (37.2-46.3) % Monocytes # (Manual) 0.07 L (0.20-1.00) X 10*3/uL Sodium 146 H (135-145) mmol/L Anion Gap 12.50 H (4.00-12.00) mmol/L Creatinine 0.5 L (0.6-1.5) mg/dL BUN/Creatinine Ratio 43.20 H (12.00-20.00) Ratio Glucose 119 H (70-110) mg/dL Calcium 8.6 L (8.7-10.3) mg/dL Microbiology - Last 24 Hours (Table) 12/27/23 01:08 Blood Culture - Preliminary Blood
[2023-12-28] MEDS: SIMETHICONE 40 MG/0.6 ML DROPS 2,000 MG/30 ML BOTTLE PO SCH (15:37)
--- NOTE | 2023-12-29 07:52 | P.PN ---
Subjective Progress Note Date: 12/29/23 83-year-old female with a history of multiple medical problems, apparently presents to [facility], and then transferred here, from a group home in [place], because of shortness of breath, and weakness. The patient is a very poor historian, but is seen in the emergency department, room 15. She apparently was noted to have increasing shortness of breath, and increased work of breathing at the group home, and her saturations, were apparently in the low 80s. The patient was apparently receiving antibiotics at the group home, for possible pneumonia. The patient is seen in room 15, and is currently on 3 L of oxygen. She was started on a Rocephin and azithromycin. She was getting saline at 100 cc an hour. Again a very poor historian, is very slow to speak, and, not much history is obtained. Medical history apparently includes COPD, acid reflux disease, hypertension, hypothyroidism, rheumatic fever, osteoarthritis, and dementia. Current laboratory data includes a normal CBC. D-dimer was 4.25. Venous blood gases show pCO2 of 38, and a pH of 7.47. Sodium 140, potassium 3.7, chlorides 107, CO2 24, anion gap 9, BUN 28, and creatinine 0.47. The patient's procalcitonin level was 0.63 which is elevated. C-reactive protein is elevated at 9.4. N-terminal proBNP 1220. Chest x-ray shows changes of COPD. No acute infiltrates. The patient is seen today December 28, 2023 in follow-up on the regular medical floor. She is currently awake and alert in no acute distress. She is maintaining O2 saturations in the 90s on 2 L/min per nasal cannula. She is afebrile. Hemodynamically stable. CT angiogram of the chest reveals similarly mild infiltrates bilateral lung townsend possible atypical pneumonia. No evidence of pulmonary embolism. Blood culture reveals no growth to date. White count 6.7. Hemoglobin 11.7. Platelets 261. Sodium 146. Potassium 3.9. Bicarb 25. BUN 22. Creatinine 0.5. C. difficile screen negative. Procalcitonin was 0.63. She is continued on ceftriaxone. Remains on DuoNeb inhalations, Pulmicort and Perforomist inhalations, Solu-Medrol. Lovenox for DVT prophylaxis. The patient is seen today December 29, 2023 in follow-up on the regular medical floor. She is currently resting comfortably in bed. Awake and alert in no acute distress. She is feeling better today compared to yesterday. She is maintaining good O2 saturations in the 90s on 2 L/min per nasal cannula. She has normal saline at 100 mL/h. She remains on ceftriaxone. Her procalcitonin was 0.63. She is continued on Pulmicort and Perforomist inhalations, DuoNeb inhalations, Solu-Medrol. Lovenox for DVT prophylaxis. Today's labs are pending. Objective - Vital Signs Vital signs: Vital Signs Temp 97.6 F 12/29/23 07:34 Pulse 71 12/29/23 07:34 Resp 16 12/29/23 07:34 BP 130/73 12/29/23 07:34 Pulse Ox 97 12/29/23 07:34 FiO2 35 12/26/23 23:34 Intake & Output 12/28/23 12/29/23 12/29/23 18:59 06:59 18:59 Intake Total 380 Output Total 350 Balance 30 Weight 67 kg Intake: Oral 380 Output: Urine 350 Other: Voiding Method Indwelling Catheter External Catheter # Voids 1 0 # Bowel Movements 2 1 - Exam GENERAL EXAM: Alert, pleasant 83-year-old female, on 2 L nasal cannula, resting in bed, comfortable in no apparent distress. HEAD: Normocephalic. EYES: Normal reaction of pupils, equal size. NOSE: Clear with pink turbinates. THROAT: No erythema or exudates. NECK: No masses, no JVD. CHEST: No chest wall deformity. LUNGS: Equal air entry with bilateral scattered rhonchi. CVS: S1 and S2 normal with no audible murmur, regular rhythm. ABDOMEN: No hepatosplenomegaly, normal bowel sounds, no guarding or rigidity. SPINE: No scoliosis or deformity SKIN: No rashes CENTRAL NERVOUS SYSTEM: No focal deficits, tone is normal in all 4 extremities. EXTREMITIES: There is no peripheral edema. No clubbing, no cyanosis. Peripheral pulses are intact. - Labs CBC & Chem 7: 12/28/23 06:26 12/28/23 06:26 Labs: Abnormal Lab Results - Last 24 Hours (Table) 12/28/23 12/28/23 Range/Units 06:26 06:26 RBC 3.74 L (4.10-5.20) X 10*6/uL Hgb 11.7 L (12.0-15.0) g/dL Hct 35.9 L (37.2-46.3) % Monocytes # (Manual) 0.07 L (0.20-1.00) X 10*3/uL Sodium 146 H (135-145) mmol/L Anion Gap 12.50 H (4.00-12.00) mmol/L Creatinine 0.5 L (0.6-1.5) mg/dL BUN/Creatinine Ratio 43.20 H (12.00-20.00) Ratio Glucose 119 H (70-110) mg/dL Calcium 8.6 L (8.7-10.3) mg/dL Microbiology - Last 24 Hours (Table) 12/27/23 01:08 Blood Culture - Preliminary Blood Assessment and Plan Assessment: Acute hypoxemic respiratory failure secondary to COPD exacerbation and possible aspiration pneumonia. Procalcitonin 0.63. Currently on ceftriaxone Abdominal pain of unclear etiology, x-ray revealed gaseous dilation of bowel projecting over the pelvis History of hypertension History of rheumatic fever as a child History of dementia History of osteoarthritis History of gastroesophageal reflux disease History of anxiety/depression Prior history of tobacco use Plan: The patient was seen and evaluated Medications reviewed Discontinue Pulmicort and Perforomist inhalations Add Symbicort Discontinue Solu-Medrol Add a prednisone taper Continue antibiotics Lovenox for DVT prophylaxis Titrate the FiO2 as tolerated This patient was seen independently by the pulmonary nurse practitioner addressing pulmonary issues I have personally seen and examined the patient, performed the documentation and the assessment and plan as written. Number of minutes spent on the visit: 24 Dictation was produced using [employer] dictation software. Please excuse any grammatical, word or spelling errors.
[2023-12-29] MEDS: SYMBICORT 160-4.5 MCG INHALER INHALATION SCH (08:26)
[2023-12-29] MEDS: predniSONE 10 MG TAB PO SCH (08:37)
[2023-12-29 09:08] LABS: HCT 34.5 % (37.2-46.3); MCH 31.3 pg (27.0-32.0); MCHC 31.9 g/dL (32.0-37.0); MCV 98.3 FL (80.0-97.0); Mean Platelet Volume 9.8 FL (9.5-12.2); NRBC Per 100 WBC 0 X 10*3/uL (0.00-0.01); Platelet Count 248 X 10*3/uL (140-440); RBC 3.51 X 10*6/uL (4.10-5.20); RDW 12.6 % (11.5-14.5); WBC 8.91 X 10*3/uL (4.50-10.00)
[2023-12-29 09:18] LABS: ALT 16 U/L (8-44); AST 23 U/L (13-35); Albumin 3.3 g/dL (3.8-4.9); Albumin/Globulin Ratio 1.83 Ratio (1.60-3.17); Alkaline Phosphatase 80 U/L (41-126); BUN/Creat Ratio 34.75 Ratio (12.00-20.00); Blood Urea Nitrogen 13.9 mg/dL (9.0-27.0); Calcium 8.5 mg/dL (8.7-10.3); Carbon Dioxide 23.3 mmol/L (21.6-31.8); Chloride 108 mmol/L (96-109); Globulin 1.8 g/dL (1.6-3.3); Glucose 170 mg/dL (70-110); Sodium 142 mmol/L (135-145); Total Bilirubin <0.2 mg/dL (0.3-1.2); Total Protein 5.1 g/dL (6.2-8.2)
[2023-12-29 10:34] LABS: Basophils # (M) 0 X 10*3/uL (0.00-0.10); Eosinophils # (M) 0 X 10*3/uL (0.04-0.35); Lymphocytes # (M) 0.53 X 10*3/uL (0.90-5.00); Metamyelocytes % 4 % (0-0); Monocytes # (M) 0.36 X 10*3/uL (0.20-1.00); Myelocytes % 5 % (0-0); Neutrophils # (M) 7.13 X 10*3/uL (1.80-7.70); Neutrophils % (M) 80 %; Promyelocytes # (M) 0.09 k/uL (0); Promyelocytes % 1 %; RBC Morphology Normal (Normal)
--- NOTE | 2023-12-29 12:45 | P.PN ---
Subjective Progress Note Date: 12/29/23 CHIEF COMPLAINT: Constipation HISTORY OF PRESENT ILLNESS: The patient is a 83-year-old female being assessed for constipation/ileus. She is laying in bed. Patient denies any abdominal pain. She is on clear liquid diet. ROS: No reports of nausea and vomiting. No fevers or chills. No new chest marito n. No productive sputum PHYSICAL EXAM: VITAL SIGNS: Reviewed CONSTITUTIONAL: Well developed and in no acute distress. EYES: Conjuctivae without sclera icterus. Extraocular movements grossly intact. HEAD, EARS, NOSE, THROAT: Moist buccal mucosa. Head is atraumatic, normocephalic. Hears conversational speech. No nasal drainage. RESPIRATORY: Non-labored respirations and equal bilateral excursions. CARDIOVASCULAR: Palpable 2+ radial pulses. ABDOMEN: Tympanic. Nontender. No peritonitis. Moderate abdominal distention. MUSCULOSKELETAL: No clubbing. No cyanosis. SKIN: Good skin turgor. Well perfused. NEUROLOGIC: Cranial nerves II through XII grossly intact. No focal or lateralizing signs. Generalized weakness. PSYCH: Appropriate affect. Alert to self. CLINICAL LABS: Reviewed. Hemoglobin down 11.7 to 11.0, anemia. WBC normal. Potassium down to 3.9 to 3.0. C. difficile negative. STUDIES: Abdominal x-ray independently reviewed demonstrates gaseous distention with suspected air-fluid level. This is my independent or potation. CT of the chest demonstrates no pulmonary embolism. Limited view of the upper abdomen noted. This is my independent interpretation ASSESSMENT: 1. Constipation 2. Ileus 3. Hypokalemia 4. Pneumonia 5. Anemia PLAN: 1. Recommend dedicated CT of the abdomen pelvis without IV contrast. May give oral contrast due to persistent distention. 2. As patient has abdominal distention, administration of carbonated beverages including straws are ill-advised. 3. Correction of hypokalemia as this contributes to ileus Objective - Vital Signs Vital signs: Vital Signs Temp 97.6 F 12/29/23 07:34 Pulse 82 12/29/23 12:07 Resp 16 12/29/23 07:34 BP 130/73 12/29/23 07:34 Pulse Ox 97 12/29/23 08:26 FiO2 35 12/26/23 23:34 Intake & Output 12/28/23 12/29/23 12/29/23 18:59 06:59 18:59 Intake Total 380 Output Total 350 Balance 30 Weight 67 kg Intake: Oral 380 Output: Urine 350 Other: Voiding Method Indwelling Catheter External Catheter Bedpan Diaper # Voids 1 0 # Bowel Movements 2 1 - Labs CBC & Chem 7: 12/29/23 03:23 12/29/23 03:23 Labs: Abnormal Lab Results - Last 24 Hours (Table) 12/28/23 12/29/23 12/29/23 Range/Units 06:26 03:23 03:23 RBC 3.51 L (4.10-5.20) X 10*6/uL Hgb 11.0 L (12.0-15.0) g/dL Hct 34.5 L (37.2-46.3) % MCV 98.3 H (80.0-97.0) FL MCHC 31.9 L (32.0-37.0) g/dL Lymphocytes # (Manual) 0.53 L (0.90-5.00) X 10*3/uL Monocytes # (Manual) 0.07 L (0.20-1.00) X 10*3/uL Eosinophils # (Manual) 0 L (0.04-0.35) X 10*3/uL Potassium 3.0 L (3.5-5.5) mmol/L Creatinine 0.4 L (0.6-1.5) mg/dL BUN/Creatinine Ratio 34.75 H (12.00-20.00) Ratio Glucose 170 H (70-110) mg/dL Calcium 8.5 L (8.7-10.3) mg/dL Total Bilirubin <0.2 L (0.3-1.2) mg/dL Total Protein 5.1 L (6.2-8.2) g/dL Albumin 3.3 L (3.8-4.9) g/dL Microbiology - Last 24 Hours (Table) 12/27/23 01:08 Blood Culture - Preliminary Blood
[2023-12-29] MEDS: POTASSIUM CHLORIDE ER 20 MEQ TAB.ER PO STA (13:04)
--- NOTE | 2023-12-29 14:07 | P.PN ---
Subjective Progress Note Date: 12/29/23 83-year-old female with a past medical history of COPD (on), GERD, hypertension, and OA presents with complaints of shortness of breath and tachypnea. Patient's daughter reports she noticed her mother, who stays at [facility] normally, was having increased work of breathing so asked one of the nurses at [facility] to put a pulse ox on her and found that her O2 saturation was in the low 80s. At this point the daughter was concerned and brought her mother to the emergency room. Of note, the daughter reports the patient was being treated for a potential pneumonia by the DRAPERY COUNSELOR at [facility] with azithromycin, cefotetan, and prednisone 50 mg. Patient reports she currently is feeling much better after starting on BiPAP in the ER and eventually being downgraded onto 3 L oxygen nasal cannula. Patient admits to shortness of breath, tachypnea, and cough. Patient denies any other symptoms. 12/27. Patient seen and examined. States she feels much better, shortness of breath is improved. Currently on 2 L of oxygen 12/28. Patient seen and examined. Patient is doing much better. Pulmonology switched IV Solu-Medrol to prednisone taper. REVIEW OF SYSTEMS: CONSTITUTIONAL: No fever, no malaise,. CARDIOVASCULAR: No chest pain, no palpitations, no syncope. PULMONARY: No shortness of breath, no cough, GASTROINTESTINAL: No diarrhea, no nausea, no vomiting, no abdominal pain. NEUROLOGICAL: No headaches, no weakness, PHYSICAL EXAMINATION: GENERAL: The patient is alert and oriented x3, not in any acute distress. Ill looking HEENT: Pupils are round and equally reacting to light. EOMI. No scleral icterus. No conjunctival pallor. Normocephalic, atraumatic. No pharyngeal erythema. No thyromegaly. CARDIOVASCULAR: S1 and S2 present. No murmurs, rubs, or gallops. PULMONARY: Chest is clear to auscultation, no wheezing or crackles. ABDOMEN: Soft, nontender, nondistended, normoactive bowel sounds. No palpable organomegaly. MUSCULOSKELETAL: No joint swelling or deformity. EXTREMITIES: No cyanosis, clubbing, or pedal edema. NEUROLOGICAL: Gross neurological examination did not reveal any focal deficits. SKIN: No rashes. Assessment and plan #Shortness of breath and tachypnea Acute hypoxic respiratory failure Acute COPD exacerbation Bacterial pneumonia Monitor vital signs Monitor CBC Monitor CMP Continue breathing treatments DC IV Solu-Medrol, started prednisone taper Continue IV Rocephin and azithromycin Pulmonary following Constipation Abdominal distention, CT scan reporting large distention of the sigmoid colon with fecal diabetes and fluid in the rectum Aggressive bowel regimen Surgery following Chronic: #GERD: Continue famotidine 20 mg p.o. daily #Hypertension: Continue home medications Labs and medication were reviewed.. Continue same treatment. Continue with symptomatic treatment. Resume home medication. Monitor labs and vitals. DVT and GI prophylaxis. Further recommendations as per clinical course of the patient Dictation was produced using [employer] dictation software. please excuse any grammatical, word or spelling errors. Objective - Vital Signs Vital signs: Vital Signs Temp 97.6 F 12/29/23 07:34 Pulse 80 12/29/23 08:42 Resp 16 12/29/23 07:34 BP 130/73 12/29/23 07:34 Pulse Ox 97 12/29/23 08:26 FiO2 35 12/26/23 23:34 Intake & Output 12/28/23 12/29/23 12/29/23 18:59 06:59 18:59 Intake Total 380 Output Total 350 Balance 30 Weight 67 kg Intake: Oral 380 Output: Urine 350 Other: Voiding Method Indwelling Catheter External Catheter # Voids 1 0 # Bowel Movements 2 1 - Labs CBC & Chem 7: 12/29/23 03:23 12/29/23 03:23 Labs: Abnormal Lab Results - Last 24 Hours (Table) 12/28/23 12/29/23 12/29/23 Range/Units 06:26 03:23 03:23 RBC 3.51 L (4.10-5.20) X 10*6/uL Hgb 11.0 L (12.0-15.0) g/dL Hct 34.5 L (37.2-46.3) % MCV 98.3 H (80.0-97.0) FL MCHC 31.9 L (32.0-37.0) g/dL Lymphocytes # (Manual) 0.53 L (0.90-5.00) X 10*3/uL Monocytes # (Manual) 0.07 L (0.20-1.00) X 10*3/uL Eosinophils # (Manual) 0 L (0.04-0.35) X 10*3/uL Potassium 3.0 L (3.5-5.5) mmol/L Creatinine 0.4 L (0.6-1.5) mg/dL BUN/Creatinine Ratio 34.75 H (12.00-20.00) Ratio Glucose 170 H (70-110) mg/dL Calcium 8.5 L (8.7-10.3) mg/dL Total Bilirubin <0.2 L (0.3-1.2) mg/dL Total Protein 5.1 L (6.2-8.2) g/dL Albumin 3.3 L (3.8-4.9) g/dL Microbiology - Last 24 Hours (Table) 12/27/23 01:08 Blood Culture - Preliminary Blood
[2023-12-29] MEDS: IOPAMIDOL CONTRAST (ORAL USE) VIAL PO PRN (15:10)
--- NOTE | 2023-12-29 17:21 | CT ---
EXAMINATION TYPE: CT abdomen pelvis wo con DATE OF EXAM: 12/29/2023 4:51 PM COMPARISON: CT abdomen pelvis most recent from CLINICAL INDICATION: Female, 83 years old with history of Abdominal distention, persistent; Abdominal distention and pain TECHNIQUE: Axial CT abdomen pelvis wo con;Sagittal and coronal reformats were created on a separate workstation. Contrast used: mL of , (none if empty) Oral contrast used: with Oral Contrast (none if empty) CT DLP: 455.3 mGycm, Automated exposure control for dose reduction was used. FINDINGS: LOWER CHEST: Unremarkable ABDOMEN LIVER: Unremarkable GALLBLADDER AND BILE DUCTS: Layering gallstones are present. The gallbladder is non distended. PANCREAS: Unremarkable. SPLEEN: Unremarkable. ADRENAL GLANDS: Unremarkable. KIDNEYS AND URETERS: No evidence of hydronephrosis or renal calculus. The ureters are unremarkable. PELVIS BLADDER: No evidence for wall thickening or mass given limitations of exam. REPRODUCTIVE: Diminutive uterus is atrophic or surgically absent. ABDOMEN & PELVIS STOMACH AND BOWEL: There is circumferential wall thickening of the rectum with upstream dilation of l arge bowel with moderate amount stool. No evidence of bowel obstruction. PERITONEUM/RETROPERITONEUM: No evidence of pneumoperitoneum or free fluid. VASCULATURE: No evidence of aortic aneurysm. MUSCULOSKELETAL: No acute osseous abnormalities. Moderate disc degeneration changes are present throu ghout the thoracolumbar spine. Severe degeneration changes of the spine. Moderate to severe degenerat ion changes of the hips with osteophyte information and subchondral cystic changes with joint space n arrowing. LYMPH NODES: No gross evidence for lymphadenopathy. SOFT TISSUE/ABDOMINAL WALL: Unremarkable IMPRESSION: Mild circumferential wall thickening of the rectum correlate for proctitis. Upstream Gaseous distenti on of large bowel without evidence of obstruction. Consider prone position to help facilitate gas to leave the abdomen. There is a moderate amount of stool throughout the colon. Severe degeneration changes of the spine and hips. [facility], , 12/29/2023 5:19 PM
--- NOTE | 2023-12-30 08:02 | P.PN ---
Subjective Progress Note Date: 12/30/23 83-year-old female with a history of multiple medical problems, apparently presents to [facility], and then transferred here, from a detention in [place], because of shortness of breath, and weakness. The patient is a very poor historian, but is seen in the emergency department, room 15. She apparently was noted to have increasing shortness of breath, and increased work of breathing at the detention, and her saturations, were apparently in the low 80s. The patient was apparently receiving antibiotics at the detention, for possible pneumonia. The patient is seen in room 15, and is currently on 3 L of oxygen. She was started on a Rocephin and azithromycin. She was getting saline at 100 cc an hour. Again a very poor historian, is very slow to speak, and, not much history is obtained. Medical history apparently includes COPD, acid reflux disease, hypertension, hypothyroidism, rheumatic fever, osteoarthritis, and dementia. Current laboratory data includes a normal CBC. D-dimer was 4.25. Venous blood gases show pCO2 of 38, and a pH of 7.47. Sodium 140, potassium 3.7, chlorides 107, CO2 24, anion gap 9, BUN 28, and creatinine 0.47. The patient's procalcitonin level was 0.63 which is elevated. C-reactive protein is elevated at 9.4. N-terminal proBNP 1220. Chest x-ray shows changes of COPD. No acute infiltrates. The patient is seen today December 28, 2023 in follow-up on the regular medical floor. She is currently awake and alert in no acute distress. She is maintaining O2 saturations in the 90s on 2 L/min per nasal cannula. She is afebrile. Hemodynamically stable. CT angiogram of the chest reveals similarly mild infiltrates bilateral lung townsend possible atypical pneumonia. No evidence of pulmonary embolism. Blood culture reveals no growth to date. White count 6.7. Hemoglobin 11.7. Platelets 261. Sodium 146. Potassium 3.9. Bicarb 25. BUN 22. Creatinine 0.5. C. difficile screen negative. Procalcitonin was 0.63. She is continued on ceftriaxone. Remains on DuoNeb inhalations, Pulmicort and Perforomist inhalations, Solu-Medrol. Lovenox for DVT prophylaxis. The patient is seen today December 29, 2023 in follow-up on the regular medical floor. She is currently resting comfortably in bed. Awake and alert in no acute distress. She is feeling better today compared to yesterday. She is maintaining good O2 saturations in the 90s on 2 L/min per nasal cannula. She has normal saline at 100 mL/h. She remains on ceftriaxone. Her procalcitonin was 0.63. She is continued on Pulmicort and Perforomist inhalations, DuoNeb inhalations, Solu-Medrol. Lovenox for DVT prophylaxis. Today's labs are pending. The patient is seen today December 30, 2023 in follow-up on the regular medical floor. She is currently resting in bed. Awake and alert in no acute distress. Maintaining O2 saturations in the 90s on 2 L/min per nasal cannula. She is continued on Symbicort, DuoNeb and elations, prednisone taper. She remains on antibiotics in the form of ceftriaxone. Completed azithromycin. Lovenox for DVT prophylaxis. CT scan of the abdomen revealed mild circumferential wall thickening of the rectum and possible proctitis. Upstream gaseous distention of large bowel without evidence of obstruction. There is moderate amount of stool throughout the colon. Objective - Vital Signs Vital signs: Vital Signs Temp 98 F 12/30/23 07:26 Pulse 71 12/30/23 07:26 Resp 16 12/30/23 07:26 BP 126/66 12/30/23 07:26 Pulse Ox 97 12/30/23 07:26 FiO2 35 12/26/23 23:34 Intake & Output 12/29/23 12/30/23 12/30/23 19:59 06:59 18:59 Intake Total Output Total Balance Intake: Oral Output: Urine Other: Voiding Method # Bowel Movements - Exam GENERAL EXAM: Alert, 83-year-old female, on 2 L nasal cannula, comfortable in no apparent distress. HEAD: Normocephalic. EYES: Normal reaction of pupils, equal size. NOSE: Clear with pink turbinates. THROAT: No erythema or exudates. NECK: No masses, no JVD. CHEST: No chest wall deformity. LUNGS: Equal air entry with bilateral scattered rhonchi. CVS: S1 and S2 normal with no audible murmur, regular rhythm. ABDOMEN: No hepatosplenomegaly, normal bowel sounds, no guarding or rigidity. SPINE: No scoliosis or deformity SKIN: No rashes CENTRAL NERVOUS SYSTEM: No focal deficits, tone is normal in all 4 extremities. EXTREMITIES: There is no peripheral edema. No clubbing, no cyanosis. Peripheral pulses are intact. - Labs CBC & Chem 7: 12/29/23 03:23 12/29/23 03:23 Labs: Abnormal Lab Results - Last 24 Hours (Table) 12/29/23 12/29/23 Range/Units 03:23 03:23 RBC 3.51 L (4.10-5.20) X 10*6/uL Hgb 11.0 L (12.0-15.0) g/dL Hct 34.5 L (37.2-46.3) % MCV 98.3 H (80.0-97.0) FL MCHC 31.9 L (32.0-37.0) g/dL Lymphocytes # (Manual) 0.53 L (0.90-5.00) X 10*3/uL Eosinophils # (Manual) 0 L (0.04-0.35) X 10*3/uL Potassium 3.0 L (3.5-5.5) mmol/L Creatinine 0.4 L (0.6-1.5) mg/dL BUN/Creatinine Ratio 34.75 H (12.00-20.00) Ratio Glucose 170 H (70-110) mg/dL Calcium 8.5 L (8.7-10.3) mg/dL Total Bilirubin <0.2 L (0.3-1.2) mg/dL Total Protein 5.1 L (6.2-8.2) g/dL Albumin 3.3 L (3.8-4.9) g/dL Microbiology - Last 24 Hours (Table) 12/27/23 01:08 Blood Culture - Preliminary Blood Assessment and Plan Assessment: Acute hypoxemic respiratory failure secondary to COPD exacerbation and possible aspiration pneumonia. Procalcitonin 0.63. Currently on ceftriaxone Abdominal pain secondary to constipation, CT scan of the abdomen revealed mild circumferential wall thickening of the rectum and possible proctitis. Upstream gaseous distention of large bowel without evidence of obstruction. There is moderate amount of stool throughout the colon. History of hypertension History of rheumatic fever as a child History of dementia History of osteoarthritis History of gastroesophageal reflux disease History of anxiety/depression Prior history of tobacco use Plan: The patient was seen and evaluated CT scan of the abdomen and pelvis, medications reviewed Continue bronchodilators and steroids Continue antibiotics Lovenox for DVT prophylaxis Follow up chest x-ray pending This patient was seen independently by the pulmonary nurse practitioner addressing pulmonary issues I have personally seen and examined the patient, performed the documentation and the assessment and plan as written. Number of minutes spent on the visit: 23 Dictation was produced using [employer] dictation software. Please excuse any grammatical, word or spelling errors.
--- NOTE | 2023-12-30 09:09 | XR ---
EXAMINATION TYPE: XR chest 1V portable DATE OF EXAM: 12/30/2023 8:20 AM COMPARISON: Chest radiographs from 12/27/2023 CLINICAL INDICATION: Female, 83 years old with history of Pneumonia; TECHNIQUE: XR chest 1V portable Frontal view of the chest. FINDINGS: Lungs/Pleura: Blunting of the left costophrenic angle. There is no evidence of right pleural effusion , focal consolidation, or pneumothorax. Pulmonary vascularity: Unremarkable. Heart/mediastinum: Cardiomediastinal silhouette is unremarkable. Musculoskeletal: No acute osseous pathology. Other findings: None IMPRESSION: 1. No acute cardiopulmonary disease/process. 2. Left pleural effusion. [facility], , 12/30/2023 9:07 AM
--- NOTE | 2023-12-30 09:34 | P.PN ---
Subjective Progress Note Date: 12/30/23 CHIEF COMPLAINT: Abdominal distention HISTORY OF PRESENT ILLNESS: The patient is a 83-year-old female being followed for abdominal distention. I ordered a repeat CT scan yesterday. Patient still has mild distention. She is on liquid diet. Patient confirms no prior history of colonoscopy. ROS: No reports of nausea and vomiting. No new chest pain. PHYSICAL EXAM: VITAL SIGNS: Reviewed CONSTITUTIONAL: Well developed and in no acute distress. EYES: Conjuctivae without sclera icterus. Extraocular movements grossly intact. HEAD, EARS, NOSE, THROAT: Moist buccal mucosa. Head is atraumatic, no rmocephalic. Hears conversational speech. No nasal drainage. RESPIRATORY: Non-labored respirations and equal bilateral excursions. CARDIOVASCULAR: Palpable 2+ radial pulses. ABDOMEN: Distended. No peritonitis. MUSCULOSKELETAL: No gross deformity of the lower extremities noted. No clubbing. No cyanosis. SKIN: Good skin turgor. Well perfused. NEUROLOGIC: Cranial nerves II through XII grossly intact. No focal or lateralizing signs. PSYCH: Appropriate affect. Alert and oriented to person, place and time. CLINICAL LABS: Reviewed. No new labs today. STUDIES: CT of the abdomen pelvis with oral contrast only demonstrated persistent dilation of the large colon particular the sigmoid colon. Proximal and distal stool noted. Questionable inflammation versus proctitis noted. Features highly suspicious for early sigmoid volvulus. This is my independent interpretation. ASSESSMENT: 1. Abdominal distention with constipation 2. Pneumonia, bacterial 3. Lung cancer 4. Abnormal CT scan for sigmoid volvulus 5. Proctitis PLAN: 1. Recommend colonoscopy to further assess persistent dilation of sigmoid colon as well as proctitis. 2. Start GoLytely prep Objective - Vital Signs Vital signs: Vital Signs Temp 98 F 12/30/23 07:26 Pulse 76 12/30/23 08:13 Resp 16 12/30/23 07:26 BP 126/66 12/30/23 07:26 Pulse Ox 96 12/30/23 08:03 FiO2 35 12/26/23 23:34 Intake & Output 12/29/23 12/30/23 12/30/23 19:59 06:59 18:59 Intake Total Output Total Balance Intake: Oral Output: Urine Other: Voiding Method # Bowel Movements - Labs CBC & Chem 7: 12/29/23 03:23 12/29/23 03:23 Labs: Abnormal Lab Results - Last 24 Hours (Table) 12/29/23 Range/Units 03:23 Lymphocytes # (Manual) 0.53 L (0.90-5.00) X 10*3/uL Eosinophils # (Manual) 0 L (0.04-0.35) X 10*3/uL Microbiology - Last 24 Hours (Table) 12/27/23 01:08 Blood Culture - Preliminary Blood
--- NOTE | 2023-12-30 10:45 | P.PN ---
Progress Note - Text Progress Note Date: 12/30/23 I personally spoke to the patient's legal guardian her daughter Yvonne [phone]. She reports her mother has 20% lung function. Goal of colonoscopy to identify area of blockage and decompress the colon for symptomatic relief. All questions were addressed. Daughter gave consent to proceed with colonoscopy.
[2023-12-30] MEDS: PEG 3350 (236 GM/BTL) + LYTES 4,000 ML BOTTLE PO ONE (12:25)
--- NOTE | 2023-12-30 13:35 | P.PN ---
Subjective Progress Note Date: 12/30/23 83-year-old female with a past medical history of COPD (on), GERD, hypertension, and OA presents with complaints of shortness of breath and tachypnea. Patient's daughter reports she noticed her mother, who stays at [facility] normally, was having increased work of breathing so asked one of the nurses at [facility] to put a pulse ox on her and found that her O2 saturation was in the low 80s. At this point the daughter was concerned and brought her mother to the emergency room. Of note, the daughter reports the patient was being treated for a potential pneumonia by the MASTER COOK at [facility] with azithromycin, cefotetan, and prednisone 50 mg. Patient reports she currently is feeling much better after starting on BiPAP in the ER and eventually being downgraded onto 3 L oxygen nasal cannula. Patient admits to shortness of breath, tachypnea, and cough. Patient denies any other symptoms. 12/27. Patient seen and examined. States she feels much better, shortness of breath is improved. Currently on 2 L of oxygen 12/28. Patient seen and examined. Patient is doing much better. Pulmonology switched IV Solu-Medrol to prednisone taper. 12/29. Patient seen and examined. States she is doing better. Surgery is planning colonoscopy for decompression REVIEW OF SYSTEMS: CONSTITUTIONAL: No fever, no malaise,. CARDIOVASCULAR: No chest pain, no palpitations, no syncope. PULMONARY: No shortness of breath, no cough, GASTROINTESTINAL: No diarrhea, no nausea, no vomiting, no abdominal pain. NEUROLOGICAL: No headaches, no weakness, PHYSICAL EXAMINATION: GENERAL: The patient is alert and oriented x3, not in any acute distress. Ill looking HEENT: Pupils are round and equally reacting to light. EOMI. No scleral icterus. No conjunctival pallor. Normocephalic, atraumatic. No pharyngeal erythema. No thyromegaly. CARDIOVASCULAR: S1 and S2 present. No murmurs, rubs, or gallops. PULMONARY: Chest is clear to auscultation, no wheezing or crackles. ABDOMEN: Soft, nontender, nondistended, normoactive bowel sounds. No palpable organomegaly. MUSCULOSKELETAL: No joint swelling or deformity. EXTREMITIES: No cyanosis, clubbing, or pedal edema. NEUROLOGICAL: Gross neurological examination did not reveal any focal deficits. SKIN: No rashes. Assessment and plan #Shortness of breath and tachypnea Acute hypoxic respiratory failure Acute COPD exacerbation Bacterial pneumonia Monitor vital signs Monitor CBC Monitor CMP Continue breathing treatments Continue prednisone taper Continue IV Rocephin, completed azithromycin Pulmonary following Constipation Abdominal distention, CT scan reporting large distention of the sigmoid colon with fecal diabetes and fluid in the rectum Aggressive bowel regimen Surgery following, planning colonoscopy for decompression Chronic: #GERD: Continue famotidine 20 mg p.o. daily #Hypertension: Continue home medications Labs and medication were reviewed.. Continue same treatment. Continue with sym ptomatic treatment. Resume home medication. Monitor labs and vitals. DVT and GI prophylaxis. Further recommendations as per clinical course of the patient Dictation was produced using [employer] dictation software. please excuse any grammatical, word or spelling errors. Objective - Vital Signs Vital signs: Vital Signs Temp 97.4 F L 12/30/23 13:03 Pulse 77 12/30/23 13:03 Resp 18 12/30/23 13:03 BP 145/66 12/30/23 13:03 Pulse Ox 93 L 12/30/23 13:03 FiO2 35 12/26/23 23:34 Intake & Output 12/29/23 12/30/23 12/30/23 19:59 06:59 18:59 Intake Total Output Total Balance Intake: Oral Output: Urine Other: Voiding Method Bedpan Diaper External Catheter # Bowel Movements - Labs CBC & Chem 7: 12/29/23 03:23 12/29/23 03:23 Labs: Microbiology - Last 24 Hours (Table) 12/27/23 01:08 Blood Culture - Preliminary Blood
[2023-12-31] MEDS ORDERED: PROPOFOL 10 MG/ML 20 ML VIAL IV ONE (08:41)
[2023-12-31] MEDS: IV FLUID CONTINUATION 1,000 ML IV ONE (09:03)
--- NOTE | 2023-12-31 09:16 | P.PCN ---
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 SURGEON: Yvonne Thomas MD. ANESTHESIA: MAC. INDICATIONS: The patient is a 83-year-old female who presents with persistent abdominal distention and abnormal imaging study for sigmoid volvulus. Benefits and risks were described and informed consent was obtained. DESCRIPTION OF PROCEDURE: The patient had undergone GoLytely prep. The patient had been brought into the operating room and laid in the left lateral decubitus position. After adequate intravenous sedation, the rectum was examined with 2% lidocaine jelly. No external hemorrhoids were encountered. The rectal tone was tight. No lesions were palpated in the rectal vault. The prep was good. The sigmoid colon was highly redundant. The scope was carefully advanced. Scattered diverticulosis was encountered. Intermittent colonic spasms were identified. No colonic polyps were found. An Olympus colonoscope was advanced until the cecum, ileocecal valve and appendiceal orifice were clearly viewed. No evidence of foc al colitis was found. Retroflexion of the scope demonstrated grade 3 internal hemorrhoids without active bleeding or inflammation. The colon was desufflated. The patient had tolerated the procedure well. Withdrawal time was over 6 minutes. FINDINGS: Aronchick preparation quality scale 2 (1-5) Internal hemorrhoids, grade 3 External prolapsed hemorrhoids, grade 3 No arteriovenous malformations. No adenomatous polyps. No focal colitis. Spasmatic colon Sigmoid diverticulosis Decompression sigmoid volvulus Dilated venules within the colon, scattered RECOMMENDATIONS: Lower endoscopy as needed May start low fiber diet Continue simethicone gas drops
--- NOTE | 2023-12-31 16:54 | P.PN ---
Subjective Progress Note Date: 12/31/23 83-year-old female with a history of multiple medical problems, apparently presents to [facility], and then transferred here, from a shelter in [place], because of shortness of breath, and weakness. The patient is a very poor historian, but is seen in the emergency department, room 15. She apparently was noted to have increasing shortness of breath, and increased work of breathing at the shelter, and her saturations, were apparently in the low 80s. The patient was apparently receiving antibiotics at the shelter, for possible pneumonia. The patient is seen in room 15, and is currently on 3 L of oxygen. She was started on a Rocephin and azithromycin. She was getting saline at 100 cc an hour. Again a very poor historian, is very slow to speak, and, not much history is obtained. Medical history apparently includes COPD, acid reflux disease, hypertension, hypothyroidism, rheumatic fever, osteoarthritis, and dementia. Current laboratory data includes a normal CBC. D-dimer was 4.25. Venous blood gases show pCO2 of 38, and a pH of 7.47. Sodium 140, potassium 3.7, chlorides 107, CO2 24, anion gap 9, BUN 28, and creatinine 0.47. The patient's procalcitonin level was 0.63 which is elevated. C-reactive protein is elevated at 9.4. N-terminal proBNP 1220. Chest x-ray shows changes of COPD. No acute infiltrates. The patient is seen today December 28, 2023 in follow-up on the regular medical floor. She is currently awake and alert in no acute distress. She is maintaining O2 saturations in the 90s on 2 L/min per nasal cannula. She is afebrile. Hemodynamically stable. CT angiogram of the chest reveals similarly mild infiltrates bilateral lung townsend possible atypical pneumonia. No evidence of pulmonary embolism. Blood culture reveals no growth to date. White count 6.7. Hemoglobin 11.7. Platelets 261. Sodium 146. Potassium 3.9. Bicarb 25. BUN 22. Creatinine 0.5. C. difficile screen negative. Procalcitonin was 0.63. She is continued on ceftriaxone. Remains on DuoNeb inhalations, Pulmicort and Perforomist inhalations, Solu-Medrol. Lovenox for DVT prophylaxis. The patient is seen today December 29, 2023 in follow-up on the regular medical floor. She is currently resting comfortably in bed. Awake and alert in no acute distress. She is feeling better today compared to yesterday. She is maintaining good O2 saturations in the 90s on 2 L/min per nasal cannula. She has normal saline at 100 mL/h. She remains on ceftriaxone. Her procalcitonin was 0.63. She is continued on Pulmicort and Perforomist inhalations, DuoNeb inhalations, Solu-Medrol. Lovenox for DVT prophylaxis. Today's labs are pending. The patient is seen today December 30, 2023 in follow-up on the regular medical floor. She is currently resting in bed. Awake and alert in no acute distress. Maintaining O2 saturations in the 90s on 2 L/min per nasal cannula. She is continued on Symbicort, DuoNeb and elations, prednisone taper. She remains on antibiotics in the form of ceftriaxone. Completed azithromycin. Lovenox for DVT prophylaxis. CT scan of the abdomen revealed mild circumferential wall thickening of the rectum and possible proctitis. Upstream gaseous distention of large bowel without evidence of obstruction. There is moderate amount of stool throughout the colon. On 12/31/2023, the patient is being seen for a follow-up. The patient is feeling well. She is less short of breath compared to yesterday. The patient had ab dominal distention and constipation. The patient underwent a colonoscopy today and the patient underwent decompression of the volvulus and the procedure was essentially successful. No significant respite distress at this point in time. No recent blood work from today. She is currently on 2 L of oxygen by nasal cannula with pulse ox of 94%. She is awake and alert and communicating. She remains on DuoNeb nebulized treatments [id number] and Symbicort as maintenance. She is also on milk of mag for chronic constipation. Objective - Vital Signs Vital signs: Vital Signs Temp 97.8 F 12/31/23 09:17 Pulse 68 12/31/23 12:12 Resp 17 12/31/23 09:17 BP 138/70 12/31/23 10:24 Pulse Ox 95 12/31/23 10:24 FiO2 35 12/26/23 23:34 Intake & Output 12/30/23 12/31/23 12/31/23 18:59 06:59 18:59 Intake Total 1740 100 Output Total 2 Balance 1740 -2 100 Weight 63 kg Intake: IV 100 Oral 1740 Output: Urine 1 Stool 1 Other: Voiding Method Bedpan Bedpan Bedpan Diaper Diaper Diaper External Catheter External Catheter External Catheter # Voids 1 2 # Bowel Movements 1 3 - Exam GENERAL EXAM: Alert, 83-year-old female, on 2 L nasal cannula, comfortable in no apparent distress. HEAD: Normocephalic. EYES: Normal reaction of pupils, equal size. NOSE: Clear with pink turbinates. THROAT: No erythema or exudates. NECK: No masses, no JVD. CHEST: No chest wall deformity. LUNGS: Equal air entry with bilateral scattered rhonchi. CVS: S1 and S2 normal with no audible murmur, regular rhythm. ABDOMEN: No hepatosplenomegaly, normal bowel sounds, no guarding or rigidity. SPINE: No scoliosis or deformity SKIN: No rashes CENTRAL NERVOUS SYSTEM: No focal deficits, tone is normal in all 4 extremities. EXTREMITIES: There is no peripheral edema. No clubbing, no cyanosis. Peripheral pulses are intact. - Labs CBC & Chem 7: 12/29/23 03:23 12/29/23 03:23 Labs: Abnormal Lab Results - Last 24 Hours (Table) 12/29/23 Range/Units 03:23 Promyelocytes # (Man) 0.09 H (0) k/uL Microbiology - Last 24 Hours (Table) 12/27/23 01:08 Blood Culture - Preliminary Blood Assessment and Plan Plan: Acute hypoxemic respiratory failure secondary to COPD exacerbation, currently stable, currently on DuoNeb and Symbicort and a prednisone burst taper. Shortne ss of breath was also part related to abdominal distention and volvulus Abdominal pain secondary to constipation/volvulus status post colonoscopy and decompression History of hypertension History of rheumatic fever as a child History of dementia History of osteoarthritis History of gastroesophageal reflux disease History of anxiety/depression Prior history of tobacco use Plan: The patient underwent a colonoscopic decompression of a sigmoid volvulus Continue bronchodilators and steroids and the patient is currently on prednisone 30 mg p.o. daily as part of the burst taper General surgery is on the case and will advance diet as tolerated Lovenox for DVT prophylaxis Chest x-ray from yesterday done on 11/29/2023 showed a small left-sided pleural effusion otherwise there is no acute cardiopulmonary abnormalities. Clinically and hemodynamically stable I will continue to follow.
--- NOTE | 2024-01-01 05:18 | P.PN ---
Subjective Progress Note Date: 12/31/23 83-year-old female with a past medical history of COPD (on), GERD, hypertension, and OA presents with complaints of shortness of breath and tachypnea. Patient's daughter reports she noticed her mother, who stays at [facility] normally, was having increased work of breathing so asked one of the nurses at [facility] to put a pulse ox on her and found that her O2 saturation was in the low 80s. At this point the daughter was concerned and brought her mother to the emergency room. Of note, the daughter reports the patient was being treated for a potential pneumonia by the ADVANCED MANUFACTURING TECHNICIAN at [facility] with azithromycin, cefotetan, and prednisone 50 mg. Patient reports she currently is feeling much better after s tarting on BiPAP in the ER and eventually being downgraded onto 3 L oxygen nasal cannula. Patient admits to shortness of breath, tachypnea, and cough. Patient denies any other symptoms. 12/27. Patient seen and examined. States she feels much better, shortness of breath is improved. Currently on 2 L of oxygen 12/28. Patient seen and examined. Patient is doing much better. Pulmonology switched IV Solu-Medrol to prednisone taper. 12/29. Patient seen and examined. States she is doing better. Surgery is planning colonoscopy for decompression 12/31/2023 Patient seen and examined in follow-up today status post colonoscopy for decompression of sigmoid volvulus with Dr. Thomas today. Diet is being advanced per surgery and tolerating thus far. Patient reports to feeling better and also being followed by pulmonary continued on DuoNebs and also a prednisone taper. Antibiotics have been completed and will monitor off antibiotic therapy. Patient currently maintained on 2 to 3 L via nasal cannula and patient and family at the bedside reports she does not normally wear oxygen. Continue to attempt to wean and encouraged to increase activity as tolerated. Plan will be for patient to return to [facility] and will have PT/OT reevaluate the patient. Daughter reports she has been significantly weak over the last few weeks and declining as far as her walking and mobilizing. REVIEW OF SYSTEMS: CONSTITUTIONAL: No fever, no malaise,. CARDIOVASCULAR: No chest pain, no palpitations, no syncope. PULMONARY: No shortness of breath, no cough, GASTROINTESTINAL: No diarrhea, no nausea, no vomiting, no abdominal pain. NEUROLOGICAL: No headaches, no weakness, PHYSICAL EXAMINATION: GENERAL: The patient is alert and oriented x2, not in any acute distress. Elderly appearing, ill looking HEENT: Pupils are round and equally reacting to light. EOMI. No scleral icterus. No conjunctival pallor. Normocephalic, atraumatic. No pharyngeal erythema. No thyromegaly. CARDIOVASCULAR: S1 and S2 muffled PULMONARY: Diminished breath sounds bilaterally otherwise chest is clear to auscultation, no wheezing or crackles. ABDOMEN: Soft, nontender, less distended, normoactive bowel sounds. No palpable organomegaly. MUSCULOSKELETAL: No joint swelling or deformity. EXTREMITIES: No cyanosis, clubbing, or pedal edema. NEUROLOGICAL: Gross neurological examination did not reveal any focal deficits. Diffusely weak SKIN: No rashes. Assessment: -Shortness of breath and tachypnea secondary to acute COPD exacerbation -Acute hypoxic respiratory failure secondary to COPD -Bacterial pneumonia -Constipation, chronic, status post colonoscopy for decompression and sigmoid volvulus -GERD -Hypertension -GI prophylaxis -DVT prophylaxis -Full code Plan: Patient being followed by general surgery along with pulmonary maintained on DuoNeb treatments and has transition to prednisone taper. Patient has completed antibiotics and will monitor closely off antibiotic therapy. General Surgery following as patient underwent colonoscopy for decompression and status post sigmoid volvulus reports to feeling improved and diet being advanced per surgery Patient continuing to wear oxygen via nasal cannula and does not normally wear, recommending weaning FiO2 as tolerated. PT/OT therapy to evaluate as patient will be returning to [facility] and daughter reports she is significantly weak would like her to have some rehab. Social work consulted. Will follow-up on repeat labs and replace potassium and electrolytes per protocol Possible discharge planning in the next 24 to 48 hours Due to multiple complex medical issues, overall prognosis is guarded. The impression and plan of care has been dictated by Reta Mustafa Nurse Practitioner as directed. Dr. Vaughn MD I have performed a history and examination and MDM of this patient, discussed the same with the dictator, and agree with the dictator's assessment and plan as written ,documented as a scribe. Based on total visit time, I have performed more than 50% of the visit. Objective - Vital Signs Vital signs: Vital Signs Temp 97.8 F 12/31/23 09:17 Pulse 73 12/31/23 09:47 Resp 17 12/31/23 09:17 BP 144/72 12/31/23 09:47 Pulse Ox 96 12/31/23 09:47 FiO2 35 12/26/23 23:34 Intake & Output 12/30/23 12/31/23 12/31/23 18:59 06:59 18:59 Intake Total 1740 100 Output Total 2 Balance 1740 -2 100 Weight 63 kg Intake: IV 100 Oral 1740 Output: Urine 1 Stool 1 Other: Voiding Method Bedpan Bedpan Diaper Diaper External Catheter External Catheter # Voids 1 2 # Bowel Movements 1 3 - Labs CBC & Chem 7: 12/29/23 03:23 12/29/23 03:23 Labs: Microbiology - Last 24 Hours (Table) 12/27/23 01:08 Blood Culture - Preliminary Blood
[2024-01-01 08:28] LABS: Basophils # (A) 0.06 X 10*3/uL (0.00-0.10); Basophils % (A) 0.7 %; Eosinophils # (A) 0.46 X 10*3/uL (0.04-0.35); Eosinophils % (A) 5.6 %; HCT 35.3 % (37.2-46.3); HGB 11.6 g/dL (12.0-15.0); Lymphocytes # (A) 2.02 X 10*3/uL (0.90-5.00); Lymphocytes % (A) 24.8 %; MCHC 32.9 g/dL (32.0-37.0); MCV 97.2 FL (80.0-97.0); Mean Platelet Volume 9.6 FL (9.5-12.2); Monocytes # (A) 0.48 X 10*3/uL (0.20-1.00); Monocytes % (A) 5.9 %; NRBC Per 100 WBC 0 X 10*3/uL (0.00-0.01); Neutrophils # (A) 4.73 X 10*3/uL (1.80-7.70); Platelet Count 222 X 10*3/uL (140-440); RBC 3.63 X 10*6/uL (4.10-5.20); RDW 12.5 % (11.5-14.5); WBC 8.16 X 10*3/uL (4.50-10.00)
[2024-01-01 08:52] LABS: Magnesium 1.9 mg/dL (1.5-2.4)
[2024-01-01 09:00] LABS: Blood Urea Nitrogen 9.8 mg/dL (9.0-27.0); Carbon Dioxide 30.9 mmol/L (21.6-31.8); Chloride 106 mmol/L (96-109); Glucose 93 mg/dL (70-110); Potassium 2.4 mmol/L (3.5-5.5); Sodium 146 mmol/L (135-145)
[2024-01-01] MEDS ORDERED: Potassium Replacement Protocol 1 EACH MISC MISCELLANE PRN (10:07)
[2024-01-01] MEDS: POTASSIUM CHLORIDE ER 20 MEQ TAB.ER PO SCH ×2 (11:33→21:50)
--- NOTE | 2024-01-01 12:47 | P.PN ---
Subjective Progress Note Date: 01/01/24 CHIEF COMPLAINT: Pneumonia HISTORY OF PRESENT ILLNESS: Patient denies any abdominal pain. She is status post colonoscopy for decompression of sigmoid volvulus. Patient is tolerating diet. Afebrile. WBC 8.16 Hgb 11.6 potassium 2.4 PHYSICAL EXAM: VITAL SIGNS: Reviewed GENERAL: Well-developed in no acute distress. HEENT: No sclera icterus. Extraocular movements grossly intact. Moist buccal mucosa. Head is atraumatic, normocephalic. Hears conversational speech. No nasal drainage. NECK: Supple without lymphadenopathy. CHEST: Non-labored respirations and equal bilateral excursions. CARDIOVASCULAR: Palpable 2+ radial pulses. ABDOMEN: Soft. mildly distended, less than yesterday. Nontender. MUSCULOSKELETAL: No clubbing or cyanosis. NEUROLOGIC: No focal or lateralizing signs. Cranial nerves II through XII grossly intact. PSYCH: Appropriate affect. Alert and oriented to person, place and time. SKIN: Well perfused. Good skin turgor. ASSESSMENT: 1. Abdominal distention. CT scan reporting large distention of the sigmoid colon with fecal debris and fluid in the rectum 2. Constipation 3. Pneumonia 4. Hypokalemia PLAN: -Continue low fiber diet -Potassium is being replaced by medicine service -Patient can be discharged from surgical standpoint when medically cleared Physician Pool Attendant note has been reviewed by physician. Signing provider agrees with the documented findings, assessment, and plan of care. Objective - Vital Signs Vital signs: Vital Signs Temp 98.5 F 01/01/24 07:15 Pulse 68 01/01/24 12:30 Resp 18 01/01/24 07:15 BP 114/64 01/01/24 07:15 Pulse Ox 96 01/01/24 07:15 FiO2 35 12/26/23 23:34 Intake & Output 12/31/23 01/01/24 01/01/24 18:59 06:59 18:59 Intake Total 640 Output Total 750 300 Balance -110 -300 Intake: IV 100 Oral 540 Output: Urine 750 300 Other: Voiding Method Bedpan Bedpan Bedpan Diaper Diaper Diaper External Catheter External Catheter External Catheter - Labs CBC & Chem 7: 01/01/24 05:29 01/01/24 05:29 Labs: Abnormal Lab Results - Last 24 Hours (Table) 11/05/24 11/05/24 Range/Units 05:29 05:29 RBC 3.63 L (4.10-5.20) X 10*6/uL Hgb 11.6 L (12.0-15.0) g/dL Hct 35.3 L (37.2-46.3) % MCV 97.2 H (80.0-97.0) FL Immature Gran # 0.41 H (0.00-0.04) X 10*3/uL Eosinophils # 0.46 H (0.04-0.35) X 10*3/uL Sodium 146 H (135-145) mmol/L Potassium 2.4 A* (3.5-5.5) mmol/L Creatinine 0.4 L (0.6-1.5) mg/dL BUN/Creatinine Ratio 24.50 H (12.00-20.00) Ratio Calcium 8.0 L (8.7-10.3) mg/dL
--- NOTE | 2024-01-01 14:45 | P.PN ---
Subjective Progress Note Date: 01/01/24 83-year-old female with a history of multiple medical problems, apparently presents to [facility], and then transferred here, from a senior care in [place], because of shortness of breath, and weakness. The patient is a very poor historian, but is seen in the emergency department, room 15. She apparently was noted to have increasing shortness of breath, and increased work of breathing at the senior care, and her saturations, were apparently in the low 80s. The patient was apparently receiving antibiotics at the senior care, for possible pneumonia. The patient is seen in room 15, and is currently on 3 L of oxygen. She was started on a Rocephin and azithromycin. She was getting saline at 100 cc an hour. Again a very poor historian, is very slow to speak, and, not much history is obtained. Medical history apparently includes COPD, acid reflux disease, hypertension, hypothyroidism, rheumatic fever, osteoarthritis, and dementia. Current laboratory data includes a normal CBC. D-dimer was 4.25. Venous blood gases show pCO2 of 38, and a pH of 7.47. Sodium 140, potassium 3.7, chlorides 107, CO2 24, anion gap 9, BUN 28, and creatinine 0.47. The patient's procalcitonin level was 0.63 which is elevated. C-reactive protein is elevated at 9.4. N-terminal proBNP 1220. Chest x-ray shows changes of COPD. No acute infiltrates. The patient is seen today December 28, 2023 in follow-up on the regular medical floor. She is currently awake and alert in no acute distress. She is maintaining O2 saturations in the 90s on 2 L/min per nasal cannula. She is afebrile. Hemodynamically stable. CT angiogram of the chest reveals similarly mild infiltrates bilateral lung townsend possible atypical pneumonia. No evidence of pulmonary embolism. Blood culture reveals no growth to date. White count 6.7. Hemoglobin 11.7. Platelets 261. Sodium 146. Potassium 3.9. Bicarb 25. BUN 22. Creatinine 0.5. C. difficile screen negative. Procalcitonin was 0.63. She is continued on ceftriaxone. Remains on DuoNeb inhalations, Pulmicort and Perforomist inhalations, Solu-Medrol. Lovenox for DVT prophylaxis. The patient is seen today December 29, 2023 in follow-up on the regular medical floor. She is currently resting comfortably in bed. Awake and alert in no acute distress. She is feeling better today compared to yesterday. She is maintaining good O2 saturations in the 90s on 2 L/min per nasal cannula. She has normal saline at 100 mL/h. She remains on ceftriaxone. Her procalcitonin was 0.63. She is continued on Pulmicort and Perforomist inhalations, DuoNeb inhalations, Solu-Medrol. Lovenox for DVT prophylaxis. Today's labs are pending. The patient is seen today December 30, 2023 in follow-up on the regular medical floor. She is currently resting in bed. Awake and alert in no acute distress. Maintaining O2 saturations in the 90s on 2 L/min per nasal cannula. She is continued on Symbicort, DuoNeb and elations, prednisone taper. She remains on antibiotics in the form of ceftriaxone. Completed azithromycin. Lovenox for DVT prophylaxis. CT scan of the abdomen revealed mild circumferential wall thickening of the rectum and possible proctitis. Upstream gaseous distention of large bowel without evidence of obstruction. There is moderate amount of stool throughout the colon. On 12/31/2023, the patient is being seen for a follow-up. The patient is feeling well. She is less short of breath compared to yesterday. The patient had ab dominal distention and constipation. The patient underwent a colonoscopy today and the patient underwent decompression of the volvulus and the procedure was essentially successful. No significant respite distress at this point in time. No recent blood work from today. She is currently on 2 L of oxygen by nasal cannula with pulse ox of 94%. She is awake and alert and communicating. She remains on DuoNeb nebulized treatments [id number] and Symbicort as maintenance. She is also on milk of mag for chronic constipation. . 01/01/2024, the patient is doing well. No new complaints. The patient is passing bowel movement activity. No nausea. No emesis. No significant shortness of breath. No abdominal pain. She remains on bronchodilators. She remains on prednisone burst taper. She is currently on 30 mg and she is also on 2 L of oxygen by nasal cannula. She is status post decompression of a sigmoid volvulus. Objective - Vital Signs Vital signs: Vital Signs Temp 98.5 F 01/01/24 07:15 Pulse 65 01/01/24 09:04 Resp 18 01/01/24 07:15 BP 114/64 01/01/24 07:15 Pulse Ox 96 01/01/24 07:15 FiO2 35 12/26/23 23:34 Intake & Output 12/31/23 01/01/24 01/01/24 18:59 06:59 18:59 Intake Total 640 Output Total 750 300 Balance -110 -300 Intake: IV 100 Oral 540 Output: Urine 750 300 Other: Voiding Method Bedpan Bedpan Bedpan Diaper Diaper Diaper External Catheter External Catheter External Catheter - Exam GENERAL EXAM: Alert, 83-year-old female, on 2 L nasal cannula, comfortable in no apparent distress. HEAD: Normocephalic. EYES: Normal reaction of pupils, equal size. NOSE: Clear with pink turbinates. THROAT: No erythema or exudates. NECK: No masses, no JVD. CHEST: No chest wall deformity. LUNGS: Equal air entry with bilateral scattered rhonchi. CVS: S1 and S2 normal with no audible murmur, regular rhythm. ABDOMEN: No hepatosplenomegaly, normal bowel sounds, no guarding or rigidity. SPINE: No scoliosis or deformity SKIN: No rashes CENTRAL NERVOUS SYSTEM: No focal deficits, tone is normal in all 4 extremities. EXTREMITIES: There is no peripheral edema. No clubbing, no cyanosis. Cherelle pheral pulses are intact. - Labs CBC & Chem 7: 01/01/24 05:29 01/01/24 05:29 Labs: Abnormal Lab Results - Last 24 Hours (Table) 12/29/23 01/01/24 01/01/24 Range/Units 03:23 05:29 05:29 RBC 3.63 L (4.10-5.20) X 10*6/uL Hgb 11.6 L (12.0-15.0) g/dL Hct 35.3 L (37.2-46.3) % MCV 97.2 H (80.0-97.0) FL Immature Gran # 0.41 H (0.00-0.04) X 10*3/uL Eosinophils # 0.46 H (0.04-0.35) X 10*3/uL Promyelocytes # (Man) 0.09 H (0) k/uL Sodium 146 H (135-145) mmol/L Potassium 2.4 A* (3.5-5.5) mmol/L Creatinine 0.4 L (0.6-1.5) mg/dL BUN/Creatinine Ratio 24.50 H (12.00-20.00) Ratio Calcium 8.0 L (8.7-10.3) mg/dL Assessment and Plan Plan: Acute hypoxemic respiratory failure secondary to COPD exacerbation, currently stable, currently on DuoNeb and Symbicort and a prednisone burst taper. Shortness of breath was also part related to abdominal distention and volvulus, clinically stable and no issues for now Abdominal pain secondary to constipation/volvulus status post colonoscopy and decompression History of hypertension History of rheumatic fever as a child History of dementia History of osteoarthritis History of gastroesophageal reflux disease History of anxiety/depression Prior history of tobacco use Plan: The patient underwent a colonoscopic decompression of a sigmoid volvulus Continue bronchodilators and steroids and the patient is currently on prednisone 30 mg p.o. daily as part of the burst taper General surgery is on the case and will advance diet as tolerated Lovenox for DVT prophylaxis Chest x-ray from yesterday done on 11/29/2023 showed a small left-sided pleural effusion otherwise there is no acute cardiopulmonary abnormalities. Clinically and hemodynamically stable I will continue to follow.
[2024-01-01] MEDS ORDERED: ZINC OXIDE PASTE (Z-GUARD) 1 APPLIC TOPICAL PRN (14:55)
[2024-01-01] MEDS: NYSTATIN 100,000 UNIT/GM POWD 15 GM TOPICAL SCH (23:16)
[2024-01-02] MEDS: POTASSIUM CHLORIDE ER 20 MEQ TAB.ER PO SCH ×2 (05:07→10:43)
--- NOTE | 2024-01-02 06:17 | P.PN ---
Subjective Progress Note Date: 01/01/24 83-year-old female with a past medical history of COPD (on), GERD, hypertension, and OA presents with complaints of shortness of breath and tachypnea. Patient's daughter reports she noticed her mother, who stays at [facility] normally, was having increased work of breathing so asked one of the nurses at [facility] to put a pulse ox on her and found that her O2 saturation was in the low 80s. At this point the daughter was concerned and brought her mother to the emergency room. Of note, the daughter reports the patient was being treated for a potential pneumonia by the HISTORICAL SITE GUIDE at [facility] with azithromycin, cefotetan, and prednisone 50 mg. Patient reports she currently is feeling much better after s tarting on BiPAP in the ER and eventually being downgraded onto 3 L oxygen nasal cannula. Patient admits to shortness of breath, tachypnea, and cough. Patient denies any other symptoms. 12/27. Patient seen and examined. States she feels much better, shortness of breath is improved. Currently on 2 L of oxygen 12/28. Patient seen and examined. Patient is doing much better. Pulmonology switched IV Solu-Medrol to prednisone taper. 12/29. Patient seen and examined. States she is doing better. Surgery is planning colonoscopy for decompression 12/31/2023 Patient seen and examined in follow-up today status post colonoscopy for decompression of sigmoid volvulus with Dr. Thomas today. Diet is being advanced per surgery and tolerating thus far. Patient reports to feeling better and also being followed by pulmonary continued on DuoNebs and also a prednisone taper. Antibiotics have been completed and will monitor off antibiotic therapy. Patient currently maintained on 2 to 3 L via nasal cannula and patient and family at the bedside reports she does not normally wear oxygen. Continue to attempt to wean and encouraged to increase activity as tolerated. Plan will be for patient to return to [facility] and will have PT/OT reevaluate the patient. Daughter reports she has been significantly weak over the last few weeks and declining as far as her walking and mobilizing. 01/01/2024 Patient is seen and examined today with no acute overnight issues noted. Patient reports she is tolerating diet with no reported nausea or vomiting. Potassium found to be low along with magnesium and being replaced and will follow-up with repeat labs. Patient continues on 2 L via nasal cannula recommend to continue weaning as tolerated. Patient evaluated by physical therapy and will be returning to [facility] on discharge. Will discuss further with case management/social work if patient requires authorization with possible discharge in the next 24 to 48 hours. Follow-up repeat labs in the a.m. to monitor electrolytes. Replace electrolytes per protocol. REVIEW OF SYSTEMS: CONSTITUTIONAL: No fever, no malaise,. CARDIOVASCULAR: No chest pain, no palpitations, no syncope. PULMONARY: No shortness of breath, no cough, GASTROINTESTINAL: No diarrhea, no nausea, no vomiting, no abdominal pain. NEUROLOGICAL: No headaches, no weakness, PHYSICAL EXAMINATION: GENERAL: The patient is alert and oriented x2, not in any acute distress. Elderly appearing, ill looking HEENT: Pupils are round and equally reacting to light. EOMI. No scleral icterus. No conjunctival pallor. Normocephalic, atraumatic. No pharyngeal erythema. No thyromegaly. CARDIOVASCULAR: S1 and S2 muffled PULMONARY: Diminished breath sounds bilaterally otherwise chest is clear to auscultation, no wheezing or crackles. ABDOMEN: Soft, nontender, less distended, normoactive bowel sounds. No palpable organomegaly. MUSCULOSKELETAL: No joint swelling or deformity. EXTREMITIES: No cyanosis, clubbing, or pedal edema. NEUROLOGICAL: Gross neurological examination did not reveal any focal deficits. Diffusely weak SKIN: No rashes. Assessment: -Shortness of breath and tachypnea secondary to acute COPD exacerbation -Acute hypoxic respiratory failure secondary to COPD -Bacterial pneumonia -Hypokalemia -Hypomagnesemia -Constipation, chronic, status post colonoscopy for decompression and sigmoid volvulus -GERD -Hypertension -GI prophylaxis -DVT prophylaxis -Full code Plan: Patient being followed by general surgery along with pulmonary maintained on DuoNeb treatments and has transition to prednisone taper. Patient has completed antibiotics and will monitor closely off antibiotic therapy. General Surgery following as patient underwent colonoscopy for decompression and status post sigmoid volvulus reports to feeling improved and diet being advanced per surgery Patient continuing to wear oxygen via nasal cannula and does not normally wear, recommending weaning FiO2 as tolerated. PT/OT therapy to evaluate as patient will be returning to [facility] and daughter reports she is significantly weak would like her to have some rehab. Social work following. Potassium 2.6 today magnesium low will replace follow-up on repeat labs in the morning Possible discharge planning in the next 24 to 48 hours Due to multiple complex medical issues, overall prognosis is guarded. The impression and plan of care has been dictated by Reta Mustafa, Nurse Practitioner as directed. Dr. Vaughn MD I have performed a history and examination and MDM of this patient, discussed the same with the dictator, and agree with the dictator's assessment and plan as written ,documented as a scribe. Based on total visit time, I have performed more than 50% of the visit. Objective - Vital Signs Vital signs: Vital Signs Temp 98.5 F 01/01/24 07:15 Pulse 65 01/01/24 09:04 Resp 18 01/01/24 07:15 BP 114/64 01/01/24 07:15 Pulse Ox 96 01/01/24 07:15 FiO2 35 12/26/23 23:34 Intake & Output 12/31/23 01/01/24 01/01/24 18:59 06:59 18:59 Intake Total 640 Output Total 750 300 Balance -110 -300 Intake: IV 100 Oral 540 Output: Urine 750 300 Other: Voiding Method Bedpan Bedpan Diaper Diaper External Catheter External Catheter - Labs CBC & Chem 7: 01/01/24 05:29 01/02/24 02:03 Labs: Abnormal Lab Results - Last 24 Hours (Table) 12/29/23 01/01/24 01/01/24 Range/Units 03:23 05:29 05:29 RBC 3.63 L (4.10-5.20) X 10*6/uL Hgb 11.6 L (12.0-15.0) g/dL Hct 35.3 L (37.2-46.3) % MCV 97.2 H (80.0-97.0) FL Immature Gran # 0.41 H (0.00-0.04) X 10*3/uL Eosinophils # 0.46 H (0.04-0.35) X 10*3/uL Promyelocytes # (Man) 0.09 H (0) k/uL Sodium 146 H (135-145) mmol/L Potassium 2.4 A* (3.5-5.5) mmol/L Creatinine 0.4 L (0.6-1.5) mg/dL BUN/Creatinine Ratio 24.50 H (12.00-20.00) Ratio Calcium 8.0 L (8.7-10.3) mg/dL
[2024-01-02 09:14] LABS: African American GFR (CKD) >90 (>60 ml/min/1.73 sqM); Anion Gap 1 mmol/L; Blood Urea Nitrogen 12 mg/dL (7-17); Calcium 8.2 mg/dL (8.4-10.2); Carbon Dioxide 35 mmol/L (22-30); Chloride 106 mmol/L (98-107); Glucose 94 mg/dL (74-99); Non-African American GFR(CKD) 89 (>60 ml/min/1.73 sqM); Potassium 3.5 mmol/L (3.5-5.1); Sodium 142 mmol/L (137-145)
[2024-01-02] MEDS: POTASSIUM CHLORIDE ER 10 MEQ TAB.ER.PRT PO SCH (12:02)
[2024-01-02 12:36] VITALS: BP 121/65; PULSE 81; RESP 16; TEMP 98.1
--- NOTE | 2024-01-02 12:58 | P.PN ---
Subjective Progress Note Date: 01/02/24 CHIEF COMPLAINT: Pneumonia HISTORY OF PRESENT ILLNESS: Patient denies any abdominal pain. She is status post colonoscopy for decompression of sigmoid volvulus. Patient is tolerating diet. Patient is having bowel movements. Afebrile. WBC 8.16 Hgb 11.6 potassium improved at 3.5 PHYSICAL EXAM: VITAL SIGNS: Reviewed GENERAL: Well-developed in no acute distress. HEENT: No sclera icterus. Extraocular movements grossly intact. Moist buccal mucosa. Head is atraumatic, normocephalic. Hears conversational speech. No nasal drainage. NECK: Supple without lymphadenopathy. CHEST: Non-labored respirations and equal bilateral excursions. CARDIOVASCULAR: Palpable 2+ radial pulses. ABDOMEN: Soft. Nondistended. Nontender MUSCULOSKELETAL: No clubbing or cyanosis. NEUROLOGIC: No focal or lateralizing signs. Cranial nerves II through XII grossly intact. PSYCH: Appropriate affect. Alert and oriented to person, place and time. SKIN: Well perfused. Good skin turgor. ASSESSMENT: 1. Sigmoid volvulus status post decompression 2. Constipation 3. Pneumonia 4. Hypokalemia improved PLAN: -Continue low fiber diet -Patient can be discharged from surgical standpoint when medically cleared Physician Multimedia Designer note has been reviewed by physician. Signing provider agrees with the documented findings, assessment, and plan of care. Objective - Vital Signs Vital signs: Vital Signs Temp 98.1 F 01/02/24 12:02 Pulse 81 01/02/24 12:02 Resp 16 01/02/24 12:02 BP 121/65 01/02/24 12:02 Pulse Ox 95 01/02/24 12:02 FiO2 35 12/26/23 23:34 Intake & Output 01/01/24 01/02/24 01/02/24 18:59 06:59 18:59 Intake Total 478 Balance 478 Intake: Intake, IV Titration 60 Amount IV Fluid Continuation 1, 60 000 ml @ 0 mls/hr IV .[employer] [facility] Rx#:[id number] Oral 418 Other: Voiding Method Bedpan Bedpan Diaper Diaper External Catheter External Catheter # Voids 2 2 4 # Bowel Movements 1 1 - Labs CBC & Chem 7: 01/01/24 05:29 01/02/24 08:19 Labs: Abnormal Lab Results - Last 24 Hours (Table) 1101/02/24 01/02/24 Range/Units 20:21 02:03 08:19 Potassium 3.2 L 3.4 L (3.5-5.1) mmol/L Carbon Dioxide 35 H (22-30) mmol/L Creatinine 0.49 L (0.52-1.04) mg/dL Calcium 8.2 L (8.4-10.2) mg/dL Microbiology - Last 24 Hours (Table) 12/27/23 01:08 Blood Culture - Final Blood
--- NOTE | 2024-01-02 14:32 | P.DS ---
Providers Date of admission: 12/27/23 02:42 Expected date of discharge: 01/02/24 Attending physician: Tim Ahuja Consults: 12/27/23 02:42 Consult Physician Routine Consulting Provider: Yvonne Thomas Consult Reason/Comments: abdominal pain Do you want consulting provider notified?: Yes 12/27/23 11:45 Consult Physician Routine Consulting Provider: Alistair Fox Consult Reason/Comments: resp failure requirung bipap Do you want consulting provider notified?: Yes Primary care physician: Stated None Hospital Course: Final diagnosis -Shortness of breath and tachypnea secondary to acute COPD exacerbation -Acute hypoxic respiratory failure secondary to COPD -Bacterial pneumonia, ruled out, procalcitonin was negative -Hypokalemia, improved after replacement -Hypomagnesemia, improved after replacement -Constipation, chronic, status post colonoscopy for decompression and sigmoid volvulus -GERD -Hypertension -GI prophylaxis -DVT prophylaxis -Full code Discharge disposition Patient is being discharged in a stable condition with guarded prognosis to [facility]. Patient will follow-up with Dr. Aranda in the outpatient setting upon discharge. Patient is to continue with prednisone taper and outpatient follow-up with pulmonary as well as general surgery as scheduled. Total time taken is greater than 35 minutes. Hospital course This is a 83-year-old female who was recently admitted with increased shortness of breath with tachypnea with acute hypoxic respiratory failure secondary to COPD exacerbation. Initially concerns for pneumonia although procalcitonin was normal and patient did receive antibiotic therapy and has been discontinued. Patient being followed by pulmonary continued on steroids and will continue a prednisone taper starting at 30 mg along with her inhalers and DuoNebs as needed. Patient to follow-up with pulmonary outpatient. Patient also evaluated by general surgery as patient has chronic constipation and underwent colonoscopy for decompression and sigmoid volvulus. Patient is continued on dysphagia low fiber diet and recommend to continue. Patient is to continue with scheduled bowel regimen as well as as needed. Patient is medically stable and will be returning to [facility]. Per family she has become progressively more weak over the last few days and would like her to receive physical therapy while at [facility]. Please refer to other consultation notes for further HPI. Currently no reports of chest pain, shortness of breath, or palpitations. Patient is afebrile. No reports of nausea or vomiting and patient is tolerating diet. Patient will be going to [facility] today. Guarded prognosis and high risk for readmissions given patient's significant comorbidities. Physical exam: Gen: This is a 83-year-old female who is awake, alert and oriented x 1-2, baseline, well-developed, elderly appearing HEENT: Head is atraumatic, normocephalic. Pupils equal, round. Sclerae is a nicteric. NECK: Supple. No JVD. No lymphadenopathy. No thyromegaly. LUNGS: Diminished breath sounds bilaterally otherwise clear to auscultation. No wheezes, a few scattered rhonchi. No intercostal retractions. HEART: S1, S2 are muffled ABDOMEN: Soft. Bowel sounds are present. No masses. No tenderness. EXTREMITIES: No pedal edema. No calf tenderness. NEUROLOGICAL: Patient is awake, alert and oriented x1-2. Cranial nerves 2 through 12 are grossly intact. Diffusely weak Please refer to medication reconciliation sheet for a list of medications. The impression and plan of care has been dictated by Reta Mustafa, Nurse Practitioner as directed. Dr. Vaughn MD I have performed a history and examination and MDM of this patient, discussed the same with the dictator, and agree with the dictator's assessment and plan as written ,documented as a scribe. Based on total visit time, I have performed more than 50% of the visit. Patient Condition at Discharge: Fair Plan - Discharge Summary New Discharge Prescriptions: New RX: Ipratropium-Albuterol Nebulize [Duoneb 0.5 mg-3 mg/3 ml Soln] 3 ml I NHALATION RT-QID each RX: Ipratropium-Albuterol Nebulize [Duoneb 0.5 mg-3 mg/3 ml Soln] 3 ml INHALATION RT-Q2H PRN each PRN Reason: Shortness Of Breath Or Wheezing RX: Potassium Chloride ER [K-Dur 10] 10 meq PO BID tab RX: Enoxaparin [Lovenox] 40 mg SQ DAILY each RX: Nystatin 100,000 Unit/gm Powd [Mycostatin Powder] 1 applic TOPICAL BID each RX: Simethicone 40 mg/0.6 ml Drops [Mylicon Drops] 40 mg PO QID ml RX: predniSONE 30 mg PO DAILY tab Continue RX: Sertraline [Zoloft] 50 mg PO DAILY RX: Magnesium Hydroxide [Milk of Magnesia] 30 mg PO DAILY PRN PRN Reason: Constipation RX: atenoloL [Tenormin] 25 mg PO DAILY RX: Umeclidinium Brm/Vilanterol Tr [Anoro Ellipta 62.5-25 Mcg INH] 1 puff INHALATION RT-DAILY RX: Ipratropium Capron [Atrovent Hfa] 2 puff INHALATION RT-QID RX: Aspirin EC [Ecotrin Low Dose] 81 mg PO DAILY RX: Ondansetron [Zofran] 4 mg PO Q6H PRN PRN Reason: Nausea RX: Multivitamins, Thera [Multivitamin (formulary)] 1 tab PO DAILY RX: Loperamide [Imodium] 2 mg PO QID PRN PRN Reason: Loose Stool RX: Famotidine [Pepcid] 20 mg PO DAILY RX: Albuterol Sulfate [Albuterol Sulfate Hfa] 2 puff PO RT-Q6H PRN PRN Reason: SOB, wheezing, cough RX: Acetaminophen Tab [Tylenol] 650 mg PO Q6H PRN MDD 3 GRAMS PRN Reason: Pain Or Fever > 100.5 Discontinued RX: predniSONE 50 mg PO DAILY cefUROXime axetiL [Ceftin] 500 mg PO Q12H Azithromycin [Zithromax Z Pack] See Taper PO DIRECTED Discharge Medication List RX: Acetaminophen Tab [Tylenol] 650 mg PO Q6H PRN MDD 3 GRAMS 12/27/23 [History] RX: Albuterol Sulfate [Albuterol Sulfate Hfa] 2 puff PO RT-Q6H PRN 12/27/23 [History] RX: Aspirin EC [Ecotrin Low Dose] 81 mg PO DAILY 12/27/23 [History] RX: Famotidine [Pepcid] 20 mg PO DAILY 12/27/23 [History] RX: Ipratropium Capron [Atrovent Hfa] 2 puff INHALATION RT-QID 12/27/23 [History] RX: Loperamide [Imodium] 2 mg PO QID PRN 12/27/23 [History] RX: Magnesium Hydroxide [Milk of Magnesia] 30 mg PO DAILY PRN 12/27/23 [History] RX: Multivitamins, Thera [Multivitamin (formulary)] 1 tab PO DAILY 12/27/23 [History] RX: Ondansetron [Zofran] 4 mg PO Q6H PRN 12/27/23 [History] RX: Sertraline [Zoloft] 50 mg PO DAILY 12/27/23 [History] RX: Umeclidinium Brm/Vilanterol Tr [Anoro Ellipta 62.5-25 Mcg INH] 1 puff INHALA TION RT-DAILY 12/27/23 [History] RX: atenoloL [Tenormin] 25 mg PO DAILY 12/27/23 [History] RX: Enoxaparin [Lovenox] 40 mg SQ DAILY each 01/02/24 [Rx] RX: Ipratropium-Albuterol Nebulize [Duoneb 0.5 mg-3 mg/3 ml Soln] 3 ml INHALATION RT-Q2H PRN each 01/02/24 [Rx] RX: Ipratropium-Albuterol Nebulize [Duoneb 0.5 mg-3 mg/3 ml Soln] 3 ml INHALATION RT-QID each 01/02/24 [Rx] RX: Nystatin 100,000 Unit/gm Powd [Mycostatin Powder] 1 applic TOPICAL BID each 01/02/24 [Rx] RX: Potassium Chloride ER [K-Dur 10] 10 meq PO BID tab 01/02/24 [Rx] RX: Simethicone 40 mg/0.6 ml Drops [Mylicon Drops] 40 mg PO QID ml 01/02/24 [Rx] RX: predniSONE 30 mg PO DAILY tab 01/02/24 [Rx] Follow up Appointment(s)/Referral(s): Karey Gilman MD [STAFF PHYSICIAN] - 1 Week Yvonne Thomas MD [STAFF PHYSICIAN] - 2 Weeks Alize Aranda DO [REFERRING] - 1 Week Activity/Diet/Wound Care/Special Instructions: Patient is going to [facility] as tolerated Follow-up with pulmonary outpatient Continue inhalers and prednisone taper on discharge Follow-up with general surgery outpatient Continue low fiber diet, dysphagia chopped with supervision with meals along with head of the bed elevated 30 to 45 degrees and continued on aspiration precautions Repeat labs in the next few days to monitor kidney functions and electrolytes Continue to use zinc barrier paste to the buttock area and offloading frequently with frequent position changes every 2 hours Discharge Disposition: TRANSFER TO SNF/ECF
--- NOTE | 2024-01-02 14:44 | P.PN ---
Subjective Progress Note Date: 01/02/24 83-year-old female with a history of multiple medical problems, apparently presents to [facility], and then transferred here, from a residential in [place], because of shortness of breath, and weakness. The patient is a very poor historian, but is seen in the emergency department, room 15. She apparently was noted to have increasing shortness of breath, and increased work of breathing at the residential, and her saturations, were apparently in the low 80s. The patient was apparently receiving antibiotics at the residential, for possible pneumonia. The patient is seen in room 15, and is currently on 3 L of oxygen. She was started on a Rocephin and azithromycin. She was getting saline at 100 cc an hour. Again a very poor historian, is very slow to speak, and, not much history is obtained. Medical history apparently includes COPD, acid reflux disease, hypertension, hypothyroidism, rheumatic fever, osteoarthritis, and dementia. Current laboratory data includes a normal CBC. D-dimer was 4.25. Venous blood gases show pCO2 of 38, and a pH of 7.47. Sodium 140, potassium 3.7, chlorides 107, CO2 24, anion gap 9, BUN 28, and creatinine 0.47. The patient's procalcitonin level was 0.63 which is elevated. C-reactive protein is elevated at 9.4. N-terminal proBNP 1220. Chest x-ray shows changes of COPD. No acute infiltrates. The patient is seen today December 28, 2023 in follow-up on the regular medical floor. She is currently awake and alert in no acute distress. She is maintaining O2 saturations in the 90s on 2 L/min per nasal cannula. She is afebrile. Hemodynamically stable. CT angiogram of the chest reveals similarly mild infiltrates bilateral lung townsend possible atypical pneumonia. No evidence of pulmonary embolism. Blood culture reveals no growth to date. White count 6.7. Hemoglobin 11.7. Platelets 261. Sodium 146. Potassium 3.9. Bicarb 25. BUN 22. Creatinine 0.5. C. difficile screen negative. Procalcitonin was 0.63. She is continued on ceftriaxone. Remains on DuoNeb inhalations, Pulmicort and Perforomist inhalations, Solu-Medrol. Lovenox for DVT prophylaxis. The patient is seen today December 29, 2023 in follow-up on the regular medical floor. She is currently resting comfortably in bed. Awake and alert in no acute distress. She is feeling better today compared to yesterday. She is maintaining good O2 saturations in the 90s on 2 L/min per nasal cannula. She has normal saline at 100 mL/h. She remains on ceftriaxone. Her procalcitonin was 0.63. She is continued on Pulmicort and Perforomist inhalations, DuoNeb inhalations, Solu-Medrol. Lovenox for DVT prophylaxis. Today's labs are pending. The patient is seen today December 30, 2023 in follow-up on the regular medical floor. She is currently resting in bed. Awake and alert in no acute distress. Maintaining O2 saturations in the 90s on 2 L/min per nasal cannula. She is continued on Symbicort, DuoNeb and elations, prednisone taper. She remains on antibiotics in the form of ceftriaxone. Completed azithromycin. Lovenox for DVT prophylaxis. CT scan of the abdomen revealed mild circumferential wall thickening of the rectum and possible proctitis. Upstream gaseous distention of large bowel without evidence of obstruction. There is moderate amount of stool throughout the colon. On 12/31/2023, the patient is being seen for a follow-up. The patient is feeling well. She is less short of breath compared to yesterday. The patient had ab dominal distention and constipation. The patient underwent a colonoscopy today and the patient underwent decompression of the volvulus and the procedure was essentially successful. No significant respite distress at this point in time. No recent blood work from today. She is currently on 2 L of oxygen by nasal cannula with pulse ox of 94%. She is awake and alert and communicating. She remains on DuoNeb nebulized treatments [id number] and Symbicort as maintenance. She is also on milk of mag for chronic constipation. . 01/01/2024, the patient is doing well. No new complaints. The patient is passing bowel movement activity. No nausea. No emesis. No significant shortness of breath. No abdominal pain. She remains on bronchodilators. She remains on prednisone burst taper. She is currently on 30 mg and she is also on 2 L of oxygen by nasal cannula. She is status post decompression of a sigmoid volvulus. On 01/02/2024, the patient is being seen for a follow-up. Doing well. No abdominal pain or distention. No respiratory distress. Labs from today shows a BUN of 12 with a creatinine of 0.49 and electrolytes show a serum bicarb of 35 and a sodium levels at 142 and a potassium level is at 3.5. Patient remains on DuoNeb nebulized treatments and Symbicort. The patient is also on a prednisone burst taper currently on 30 mg p.o. daily. No other new complaints otherwise for now. Objective - Vital Signs Vital signs: Vital Signs Temp 98.1 F 01/02/24 12:02 Pulse 81 01/02/24 12:02 Resp 16 01/02/24 12:02 BP 121/65 01/02/24 12:02 Pulse Ox 95 01/02/24 12:02 FiO2 35 12/26/23 23:34 Intake & Output 01/01/24 01/02/24 01/02/24 18:59 06:59 18:59 Intake Total 478 Balance 478 Intake: Intake, IV Titration 60 Amount IV Fluid Continuation 1, 60 000 ml @ 0 mls/hr IV .[employer] ONE Rx#:[id number] Oral 418 Other: Voiding Method Bedpan Bedpan Diaper Diaper External Catheter External Catheter # Voids 2 2 4 # Bowel Movements 1 1 - Exam GENERAL EXAM: Alert, 83-year-old female, on 2 L nasal cannula, comfortable in no apparent distress. HEAD: Normocephalic. EYES: Normal reaction of pupils, equal size. NOSE: Clear with pink turbinates. THROAT: No erythema or exudates. NECK: No masses, no JVD. CHEST: No chest wall deformity. LUNGS: Equal air entry with bilateral scattered rhonchi. CVS: S1 and S2 normal with no audible murmur, regular rhythm. ABDOMEN: No hepatosplenomegaly, normal bowel sounds, no guarding or rigidity. SPINE: No scoliosis or deformity SKIN: No rashes CENTRAL NERVOUS SYSTEM: No focal deficits, tone is normal in all 4 extremities. EXTREMITIES: There is no peripheral edema. No clubbing, no cyanosis. Peripheral pulses are intact. - Labs CBC & Chem 7: 01/01/24 05:29 01/02/24 08:19 Labs: Abnormal Lab Results - Last 24 Hours (Table) 01/01/24 01/02/24 01/02/24 Range/Units 20:21 02:03 08:19 Potassium 3.2 L 3.4 L (3.5-5.1) mmol/L Carbon Dioxide 35 H (22-30) mmol/L Creatinine 0.49 L (0.52-1.04) mg/dL Calcium 8.2 L (8.4-10.2) mg/dL Microbiology - Last 24 Hours (Table) 12/27/23 01:08 Blood Culture - Final Blood Assessment and Plan Plan: Acute hypoxemic respiratory failure secondary to COPD exacerbation, currently stable, currently on DuoNeb and Symbicort and a prednisone burst taper. Shortness of breath was also part related to abdominal distention and volvulus, clinically stable and no issues for now Abdominal pain secondary to constipation/volvulus status post colonoscopy and decompression History of hypertension History of rheumatic fever as a child History of dementia History of osteoarthritis History of gastroesophageal reflux disease History of anxiety/depression Prior history of tobacco use Plan: Clinically stable no abdominal pain or distention Positive bowel sounds The patient underwent a colonoscopic decompression of a sigmoid volvulus Continue bronchodilators and steroids and the patient is currently on prednisone 30 mg p.o. daily as part of the burst taper General surgery is on the case and will advance diet as tolerated Lovenox for DVT prophylaxis Chest x-ray from yesterday done on 11/29/2023 showed a small left-sided pleural effusion otherwise there is no acute cardiopulmonary abnormalities. Clinically and hemodynamically stable I will continue to follow.
--- NOTE | 2024-03-14 04:58 | ED ---
SOB HPI - General Chief Complaint: Shortness of Breath Stated Complaint: MITCHELL Time Seen by Provider: 12/26/23 23:25 Source: patient, family (Daughter), EMS, old records reviewed Mode of arrival: EMS Limitations: altered mental status (Dyspnea) - History of Present Illness Initial Comments: This patient is an 83-year-old woman who is coming from [facility] to have evaluation of cough and shortness of breath. Patient has been having worsening shortness of breath over days. The patient reportedly being treated for pneumonia at the long-term care facility. Today pulse oximetry readings were down around 80% and therefore patient transferred here. Patient denies chest pain. Most of history comes from EMS and patient's daughter as the patient very dyspneic MD Complaint: shortness of breath, cough -: days(s) Severity scale (1-10): 0 Consistency: constant Improves With: oxygen Known History Of: COPD Associated Symptoms: cough Treatments Prior to Arrival: oxygen, other (Antibiotic) - Related Data Home Medications Medication Instructions Recorded Confirmed Acetaminophen Tab [Tylenol] 650 mg PO Q6H PRN MDD 3 GRAMS 12/27/23 12/27/23 Albuterol Sulfate [Albuterol 2 puff PO RT-Q6H PRN 12/27/23 12/27/23 Sulfate Hfa] Aspirin EC [Ecotrin Low Dose] 81 mg PO DAILY 12/27/23 12/27/23 Famotidine [Pepcid] 20 mg PO DAILY 12/27/23 12/27/23 Ipratropium Paia [Atrovent Hfa] 2 puff INHALATION RT-QID 12/27/23 12/27/23 Loperamide [Imodium] 2 mg PO QID PRN 12/27/23 12/27/23 Magnesium Hydroxide [Milk of 30 mg PO DAILY PRN 12/27/23 12/27/23 Magnesia] Multivitamins, Thera [Multivitamin 1 tab PO DAILY 12/27/23 12/27/23 (formulary)] Ondansetron [Zofran] 4 mg PO Q6H PRN 12/27/23 12/27/23 Sertraline [Zoloft] 50 mg PO DAILY 12/27/23 12/27/23 Umeclidinium Brm/Vilanterol Tr 1 puff INHALATION RT-DAILY 12/27/23 12/27/23 [Anoro Ellipta 62.5-25 Mcg INH] atenoloL [Tenormin] 25 mg PO DAILY 12/27/23 12/27/23 Previous Rx's Medication Instructions Recorded Enoxaparin [Lovenox] 40 mg SQ DAILY each 01/02/24 Ipratropium-Albuterol Nebulize 3 ml INHALATION RT-Q2H PRN each 01/02/24 [Duoneb 0.5 mg-3 mg/3 ml Soln] Ipratropium-Albuterol Nebulize 3 ml INHALATION RT-QID each 01/02/24 [Duoneb 0.5 mg-3 mg/3 ml Soln] Nystatin 100,000 Unit/gm Powd 1 applic TOPICAL BID each 01/02/24 [Mycostatin Powder] Potassium Chloride ER [K-Dur 10] 10 meq PO BID tab 01/02/24 Simethicone 40 mg/0.6 ml Drops 40 mg PO QID ml 01/02/24 [Mylicon Drops] predniSONE 30 mg PO DAILY tab 01/02/24 Allergies Allergy/AdvReac Type Severity Reaction Status Date / Time animal dander Allergy Unknown Verified 12/27/23 08:16 atorvastatin [From Lipitor] Allergy Unknown Verified 12/27/23 08:16 latex Allergy Unknown Verified 12/27/23 08:16 milk Allergy Unknown Verified 12/27/23 08:16 Review of Systems ROS Statement: Those systems with pertinent positive or pertinent negative responses have been documented in the HPI. ROS Other: All systems not noted in ROS Statement are negative. Constitutional: Denies: fever Respiratory: Reports: cough, dyspnea Cardiovascular: Denies: chest pain Gastrointestinal: Denies: abdominal pain, vomiting Musculoskeletal: Denies: back pain Neurological: Denies: headache Past Medical History Past Medical History: Cancer, COPD, GERD/Reflux, Hypertension, Osteoarthritis (OA) Additional Past Medical History / Comment(s): hypothyroidism, rhematic fever as child, heart murmur, dementia, frequent falls History of Any Multi-Drug Resistant Organisms: None Reported Additional Past Surgical History / Comment(s): breast biopsy, cataract sx. Past Psychological History: Anxiety, Depression Smoking Status: Former smoker Past Alcohol Use History: Occasional Past Drug Use History: None Reported General Exam Limitations: no limitations General appearance: alert, in distress Head exam: Present: atraumatic, normocephalic Eye exam: Present: normal appearance Neck exam: Present: normal inspection, full ROM Respiratory exam: Present: respiratory distress, rales, rhonchi, accessory muscle use. Absent: wheezes, stridor, chest wall tenderness, decreased breath sounds Cardiovascular Exam: Present: normal rhythm, tachycardia. Absent: systolic murmur, diastolic murmur, rubs, gallop GI/Abdominal exam: Present: soft. Absent: distended, tenderness, guarding, rebound, rigid, mass Extremities exam: Present: normal inspection, normal capillary refill. Absent: pedal edema, calf tenderness Back exam: Present: normal inspection Neurological exam: Present: alert Skin exam: Present: warm, dry, intact, normal color. Absent: rash Course Vital Signs 12/26/23 12/26/23 12/27/23 23:20 23:34 00:05 Temperature 98.7 F Pulse Rate 103 H 100 Respiratory 33 H 16 Rate Blood Pressure 129/66 121/62 O2 Sat by Pulse 94 L 96 Oximetry Fraction of 35 Inspired Oxygen (FIO2) 12/27/23 12/27/23 12/27/23 01:03 01:08 02:35 Temperature Pulse Rate 93 87 Respiratory 28 H 16 16 Rate Blood Pressure 124/61 126/57 O2 Sat by Pulse 95 94 L Oximetry Fraction of Inspired Oxygen (FIO2) 12/27/23 12/27/23 12/27/23 04:24 05:24 06:11 Temperature Pulse Rate 79 73 72 Respiratory 16 22 16 Rate Blood Pressure 123/72 123/54 124/54 O2 Sat by Pulse 95 95 94 L Oximetry Fraction of Inspired Oxygen (FIO2) 12/27/23 12/27/23 12/27/23 07:17 08:54 12:11 Temperature Pulse Rate 77 71 76 Respiratory 20 18 18 Rate Blood Pressure 108/51 130/53 134/63 O2 Sat by Pulse 98 96 95 Oximetry Fraction of Inspired Oxygen (FIO2) 12/27/23 12/27/23 12/27/23 13:02 16:13 16:26 Temperature Pulse Rate 76 76 84 Respiratory 18 Rate Blood Pressure 140/62 O2 Sat by Pulse 96 Oximetry Fraction of Inspired Oxygen (FIO2) 12/27/23 17:27 Temperature 97.7 F Pulse Rate 75 Respiratory 18 Rate Blood Pressure 144/89 O2 Sat by Pulse 97 Oximetry Fraction of Inspired Oxygen (FIO2) Procedures - [place] Protocol (Time Out) Patient Identification (2 identifiers required): Chart, Verbal, Arm Band, Name, Birthdate, Medical Record Number Patient/Legal Propagation Worker has Confirmed: Identity, Procedure, Consent Site Marked: Not Applicable Medical Decision Making - Medical Decision Making The patient had chest x-ray that I interpreted as negative for acute pneumothorax, congestive heart failure Was pt. sent in by a medical professional or institution (, [facility], DEAF/HARD OF HEARING SPECIALIST, urgent care, hospital, or senior care...) When possible be specific @ -[No] Did you speak to anyone other than the patient for history (EMS, parent, family, police, friend...)? What history was obtained from this source @ -[Received history from EMS and from the patient's daughter Did you review nursing and triage notes (agree or disagree)? Why? @ -[I reviewed and agree with nursing and triage notes] Were old charts reviewed (outside hosp., previous admission, EMS record, old EKG, old radiological studies, urgent care reports/EKG's, senior care records)? Report findings @ -[The transfer records were reviewed] Differential Diagnosis (chest pain, altered mental status, abdominal pain women, abdominal pain men, vaginal bleeding, weakness, fever, dyspnea, syncope, headache, dizziness, GI bleed, back pain, seizure, CVA, palpatations, mental health, musculoskeletal)? @ -[Differential Dyspnea: Coronary syndrome, arrhythmia, tamponade, asthma, COPD, pulmonary embolism, pneumonia, pneumothorax, pulmonary effusion, anaphylaxis, diabetic ketoacidosis, flailed chest, pulmonary contusion, diaphragmatic rupture, anemia, neuromuscular, this is not meant to be an all-inclusive list. EKG interpreted by me (3pts min.). @ -[I interpreted as above] X-rays interpreted by me (1pt min.). @ -[I interpreted as above CT interpreted by me (1pt min.). @ -[None done] U/S interpreted by me (1pt. min.). @ -[None done] What testing was considered but not performed or refused? (CT, X-rays, U/S, labs)? Why? @ -[None] What meds were considered but not given or refused? Why? @ -[None] Did you discuss the management of the patient with other professionals (professionals i.e. Dr., PA, DEAF/HARD OF HEARING SPECIALIST, lab, RT, psych nurse, clinical social work therapist, air quality engineer, teacher, casino surveillance officer, case technician)? Give summary @ -Case discussed with admitting physician and treatment recommendations are incorporated Was smoking cessation discussed for >3mins.? @ -[No] Was critical care preformed (if so, how long)? @ -[No] Were there social determinants of health that impacted care today? How? (Homelessness, low income, unemployed, alcoholism, drug addiction, transportation, low edu. Level, literacy, decrease access to med. care, fdc, rehab)? @ -[No] Was there de-escalation of care discussed even if they declined (Discuss DNR or withdrawal of care, Hospice)? DNR status @ -[No] What co-morbidities impacted this encounter? (DM, HTN, Smoking, COPD, CAD, Cancer, CVA, ARF, Chemo, Hep., AIDS, mental health diagnosis, sleep apnea, morbid obesity)? @ -[COPD Was patient admitted / discharged? Hospital course, mention meds given and route, prescriptions, significant lab abnormalities, going to OR and other pertinent info. @ -[Patient is 83-year-old woman transferred from long-term care facility for worsening dyspnea. Patient does appear to have pneumonia and will be admitted to have further treatment as well as pulmonology consultation. Patient is clinically improving after being placed on BiPAP, respiratory rate and pulse oximetry is improved Undiagnosed new problem with uncertain prognosis? @ -[No] Drug Therapy requiring intensive monitoring for toxicity (Heparin, Nitro, Insulin, Cardizem)? @ -[No] Were any procedures done? @ -[No] Diagnosis/symptom? @ -[COPD exacerbation Suspect atypical pneumonia Acute hypoxemic respiratory failure Lactic acidosis Acute, or Chronic, or Acute on Chronic? @ -[Acute Uncomplicated (without systemic symptoms) or Complicated (systemic symptoms)? @ -[Complicated by dyspnea Side effects of treatment? @ -[No] Exacerbation, Progression, or Severe Exacerbation? @ -[No] Poses a threat to life or bodily function? How? (Chest pain, [place], [place], pneumonia, PE, COPD, DKA, ARF, appy, cholecystitis, CVA, Diverticulitis, Homicidal, Suic idal, threat to staff... and all critical care pts) @ -[Yes threat to life posed by respiratory failure Please note that this is a repeat dictation as the original appears to have been lost from the system - Lab Data Result diagrams: 01/01/24 05:29 01/02/24 14:40 Lab Results 12/27/23 12/27/23 12/27/23 Range/Units 00:25 00:25 00:25 WBC 7.7 (3.8-10.6) k/uL RBC 4.05 (3.80-5.40) m/uL Hgb 13.0 (11.4-16.0) gm/dL Hct 38.9 (34.0-46.0) % MCV 96.0 (80.0-100.0) fL MCH 32.1 (25.0-35.0) pg MCHC 33.5 (31.0-37.0) g/dL RDW 12.8 (11.5-15.5) % Plt Count 299 (150-450) k/uL MPV 7.8 Neutrophils % 83 % Lymphocytes % 9 % Monocytes % 6 % Eosinophils % 0 % Basophils % 0 % Neutrophils # 6.4 (1.3-7.7) k/uL Lymphocytes # 0.7 L (1.0-4.8) k/uL Monocytes # 0.4 (0-1.0) k/uL Eosinophils # 0.0 (0-0.7) k/uL Basophils # 0.0 (0-0.2) k/uL VBG pH (7.31-7.41) VBG pCO2 (37-51) mmHg VBG HCO3 (24-28) mmol/L Sodium 140 (137-145) mmol/L Potassium 3.7 (3.5-5.1) mmol/L Chloride 107 (98-107) mmol/L Carbon Dioxide 24 (22-30) mmol/L Anion Gap 9 mmol/L BUN 28 H (7-17) mg/dL Creatinine 0.47 L (0.52-1.04) mg/dL Est GFR (CKD-EPI)AfAm >90 (>60 ml/min/1.73 sqM) Est GFR (CKD-EPI)NonAf >90 (>60 ml/min/1.73 sqM) Glucose 208 H (74-99) mg/dL Lactic Ac Sepsis Rflx Plasma Lactic Acid Mak 2.2 H* (0.7-2.0) mmol/L Calcium 9.5 (8.4-10.2) mg/dL Total Bilirubin 0.4 (0.2-1.3) mg/dL AST 31 (14-36) U/L ALT 18 (4-34) U/L Alkaline Phosphatase 121 (38-126) U/L C-Reactive Protein 9.40 H (0.00-0.80) mg/dL Total Protein 6.5 (6.3-8.2) g/dL Albumin 3.8 (3.5-5.0) g/dL Procalcitonin (0.02-0.50) ng/mL 12/27/23 12/27/23 12/27/23 Range/Units 00:25 01:09 01:10 WBC (3.8-10.6) k/uL RBC (3.80-5.40) m/uL Hgb (11.4-16.0) gm/dL Hct (34.0-46.0) % MCV (80.0-100.0) fL MCH (25.0-35.0) pg MCHC (31.0-37.0) g/dL RDW (11.5-15.5) % Plt Count (150-450) k/uL MPV Neutrophils % % Lymphocytes % % Monocytes % % Eosinophils % % Basophils % % Neutrophils # (1.3-7.7) k/uL Lymphocytes # (1.0-4.8) k/uL Monocytes # (0-1.0) k/uL Eosinophils # (0-0.7) k/uL Basophils # (0-0.2) k/uL VBG pH 7.47 H (7.31-7.41) VBG pCO2 38 (37-51) mmHg VBG HCO3 28 (24-28) mmol/L Sodium (137-145) mmol/L Potassium (3.5-5.1) mmol/L Chloride (98-107) mmol/L Carbon Dioxide (22-30) mmol/L Anion Gap mmol/L BUN (7-17) mg/dL Creatinine (0.52-1.04) mg/dL Est GFR (CKD-EPI)AfAm (>60 ml/min/1.73 sqM) Est GFR (CKD-EPI)NonAf (>60 ml/min/1.73 sqM) Glucose (74-99) mg/dL Lactic Ac Sepsis Rflx Y Plasma Lactic Acid Mak (0.7-2.0) mmol/L Calcium (8.4-10.2) mg/dL Total Bilirubin (0.2-1.3) mg/dL AST (14-36) U/L ALT (4-34) U/L Alkaline Phosphatase (38-126) U/L C-Reactive Protein (0.00-0.80) mg/dL Total Protein (6.3-8.2) g/dL Albumin (3.5-5.0) g/dL Procalcitonin 0.63 H (0.02-0.50) ng/mL - EKG Data -: EKG Interpreted by Me EKG shows normal: sinus rhythm, axis (Normal), intervals (Normal), QRS complexes (Normal), ST-T waves (Normal) Rate: tachycardia (Rate 102 bpm) Disposition Clinical Impression: COPD exacerbation, Pneumonia, Lactic acid acidosis Disposition: ADMITTED IP TO THIS HOSP Condition: Fair Is patient prescribed a controlled substance at d/c from ED?: No
== END 2024-01-02 17:37 | DRG 189 ==
LOC: EC 23:18 → 3SCARD 12-27 02:42 → EEVIPCON 12-27 02:42 → 3SCARD 12-27 11:39 → 5NMEDONC 12-27 13:43
PROVIDERS: ADMIT Hospitalist; ATTEND Hospitalist
PROC: 5A09357 Assistance with Respiratory Ventilation, Less than 24 Consecutive Hours, Continuous Positive Airway Pressure (ICD-10-PCS; 2023-12-26)
PROC: 0D7N8ZZ Dilation of Sigmoid Colon, Via Natural or Artificial Opening Endoscopic (ICD-10-PCS; principal; 2023-12-31 07:30)
DX: J96.01 Acute respiratory failure with hypoxia (principal); K56.2 Volvulus; J44.1 Chronic obstructive pulmonary disease with (acute) exacerbation; C34.90 Malignant neoplasm of unspecified part of unspecified bronchus or lung; F03.93 Unspecified dementia, unspecified severity, with mood disturbance; F03.94 Unspecified dementia, unspecified severity, with anxiety; K21.9 Gastro-esophageal reflux disease without esophagitis; K57.30 Diverticulosis of large intestine without perforation or abscess without bleeding; K64.2 Third degree hemorrhoids; R13.10 Dysphagia, unspecified; K59.09 Other constipation; M19.90 Unspecified osteoarthritis, unspecified site; K59.00 Constipation, unspecified; D64.9 Anemia, unspecified; E03.9 Hypothyroidism, unspecified; E83.42 Hypomagnesemia; E87.6 Hypokalemia; F32.A Depression, unspecified; I10 Essential (primary) hypertension; Z20.822 Contact with and (suspected) exposure to COVID-19; Z79.82 Long term (current) use of aspirin; Z79.899 Other long term (current) drug therapy; Z86.19 Personal history of other infectious and parasitic diseases; Z87.891 Personal history of nicotine dependence; Z92.3 Personal history of irradiation; Z88.8 Allergy status to other drugs, medicaments and biological substances; Z91.040 Latex allergy status; Z91.011 Allergy to milk products
CPT/HCPCS: 36415; 45393; 51702; 71045; 71275; 74019; 74176; 80048; 80053; 82803; 83605; 83735; 83880; 84132; 84145; 84484; 85025; 85379; 86140; 87040; 87324; 87449; 87636; 93005; 94640; 94660; 94760; 99285